=== PATIENT | male | born 1965 | race Caucasian/White ===

== ENCOUNTER 2019-07-08 07:09 | Emergency (ER) | payer MEDICARE ==
[~2019-07-08] VITALS: Ht 172.7 cm; Wt 79.4 kg
--- OUTSIDE RECORDS SUMMARY | ~2019-07-08 | XMS | Encounter Summary ---
Demographics + + + | Address | [address] | | | [place] [address] | + + + | Home Phone | | + + + | Preferred Language | Unknown | + + + | Marital Status | Single | + + + | Latter-Day Affiliation | NON | + + + | Race | White | + + + | Ethnic Group | Not or | + + + Author + + + | Author | [facility] | + + + | Organization | [facility] | + + + | Address | Unknown | + + + | Phone | Unavailable | + + + Care Team Providers + +------+ + | Care Form Designer Name | Role | Phone | + +------+ + PCP | Unavailable | + +------+ + Encounter Details +--------+ + + + + | Date | Type | Department | Care Team | Description | +--------+ + + + + | 05/17/ | Results | [facility] | E[facility] | | | 2013 | Only | Department | DO Spencer [address] | | | | | | [place] | | | | | | [address] | | | | | | [phone] | | | | | | | | +--------+ + + + + Social History + +-------+ +--------+------+ | Tobacco Use | Types | Packs/Day | Years | Date | | | | | Used | | + +-------+ +--------+------+ | Never Assessed | | | | | + +-------+ +--------+------+ + + + | Sex Assigned at | Date Recorded | | | | + + + | Not on file | | + + + + + + + | Job Start Date | Occupation | Industry | + + + + | Not on file | Not on file | Not on file | + + + + + + + + | Travel History | Travel Start | Travel End | + + + + + + | No recent travel history available. | + + documented as of this encounter Plan of Treatment Not on filedocumented as of this encounter Procedures + +--------+ + + + | Procedure Name | Priori | Date/Time | Associated Diagnosis | Comments | | | ty | | | | + +--------+ + + + | THEOPHYLLINE, PLASMA | Routin | 05/17/2014 | | Results for this | | | e | 10:35 AM | | procedure are in the | | | | PDT | | results section. | + +--------+ + + + documented in this encounter Results THEOPHYLLINE, PLASMA (05/17/2014 10:35 AM PDT) + + + + + + | Component | Value | Ref Range | Performed | Pathologist | | | | | At | Signature | + + + + + + | THEOPHYLLIN | < 0.1 (L) | 10.0 - 20.0 | [facility] | | | E | | [facility] | A [facility] | | | CONC[facility]TRAT[facility] | | | CENTER | | | ON | | | | | + + + + + + | LAST DOSE | NO | | [facility] | | | KNOWN | | | A MEDICAL | | | | | | CENTER | | + + + + + + | LAST DOSE | [facility] | | [facility] | | | DATE | | | A MEDICAL | | | | | | CENTER | | + + + + + + | LAST DOSE | [facility] | | [facility] | | | TIME | | | A MEDICAL | | | | | | CENTER | | + + + + + + + + | Specimen | + + | | + + + + + + + | Performing | Address | City/State/Zipcode | Phone Number | | Organization | | | | + + + + + | [facility] | | | | | LABORATORY | | | | + + + + + | [facility] | And | [place] [address] | [phone] | | [facility] | [facility] | | | + + + + + documented in this encounter Visit Diagnoses Not on filedocumented in this encounter"
--- OUTSIDE RECORDS SUMMARY | ~2019-07-08 | XMS | Encounter Summary ---
Demographics + + + | Address | [address] | | | [place] [address] | + + + | Home Phone | | + + + | Preferred Language | Unknown | + + + | Marital Status | | + + + | Muslim Affiliation | 1027 | + + + | Race | Unknown | + + + | Ethnic Group | Unknown | + + + Author + + + | Author | [facility] | | | and [place] | + + + | Organization | [facility] | | | and [place] | + + + | Address | Unknown | + + + | Phone | Unavailable | + + + Support + + +---------+ + | Name | Relationship | Address | Phone | + + +---------+ + | Thania Santiago | ECON | Unknown | | + + +---------+ + Care Team Providers + +------+ + | Care Department Head Name | Role | Phone | + +------+ + | Radha Rowland MD | PCP | | + +------+ + Reason for Visit + + + | Reason | Comments | + + + | Medication Refill | albuterol 2.5 mg/3 mL nebulizer solution | + + + Encounter Details +--------+--------+ + + + | Date | Type | Department | Care Team | Description | +--------+--------+ + + + | 05/04/ | Refill | [facility] | Jacob Disla, | Medication Refill | | 2019 | | [facility] | CREDIT CLERK [address] | (albuterol 2.5 mg/3 | | | | CARE [address] | [place], [place] | mL nebulizer | | | | [place], [place] | [address] | solution) | | | | [address] | | | | | | [phone] | | | +--------+--------+ + + + Social History + +-------+ +--------+------+ | Tobacco Use | Types | Packs/Day | Years | Date | | | | | Used | | + +-------+ +--------+------+ | Never Smoker | | | | | + +-------+ +--------+------+ + +------+---+---+ | Smokeless Tobacco: | Chew | | | | Current User | | | | + +------+---+---+ + + | Comments: 1 can chew weekly | + + + + +---------+ + | Alcohol Use | Drinks/We | oz/Week | Comments | | | ek | | | + + +---------+ + | No | | | | + + +---------+ + + + + | Sex Assigned at [...] Not on filedocumented as of this encounter Visit Diagnoses Not on filedocumented in this encounter"
--- OUTSIDE RECORDS SUMMARY | ~2019-07-08 | XMS | Clinical Summary ---
Demographics + + + | Address | [address] | | | [place] [address] | + + + | Home Phone | | + + + | Preferred Language | Unknown | + + + | Marital Status | | + + + | Presybeterian Affiliation | 1027 | + + + | Race | Unknown | + + + | Ethnic Group | Unknown | + + + Author + + + | Author | [facility] [facility] (Historical as of | | | 04-25-19) | + + + | Organization | [facility] [employer] (Historical as of | | | 04-25-19) | + + + | Address | Unknown | + + + | Phone | Unavailable | + + + Support + + +---------+ + | Name | Relationship | Address | Phone | + + +---------+ + | Thania Santiago | ECON | Unknown | | + + +---------+ + Care Team Providers + +------+ + | Care Telemetry Technician Name | Role | Phone | + +------+ + | Radha Rowland MD | PP | | + +------+ + Allergies + + + + + + | Active Allergy | Reactions | Severity | Noted | Comments | | | | | Date | | + + + + + + | Ibuprofen | Hives | High | 10/20/20 | | | | | | 11 | | + + + + + + Current Medications + + +---------+---------+------+------+-------+ | Prescription | Sig. | Disp. | Refills | Star | End | Statu | | | | | | t | Date | s | | | | | | Date | | | + + +---------+---------+------+------+-------+ | montelukast | Take 1 tablet by | 30 | 11 | 12/08 | 12/08 | Activ | | (SINGULAIR) 10 MG | mouth nightly. | tablet | | 6/20 | 5/20 | e | | tabletIndications: | | | | 19 | 20 | | | Severe persistent | | | | | | | | asthma with acute | | | | | | | | exacerbation | | | | | | | + + +---------+---------+------+------+-------+ | fluticasone | Inhale 1 puff into | 1 | 12 | 12/08 | 12/08 | Activ | | (FLOVENT HFA) 220 | the lungs 2 (two) | Inhaler | | 6/20 | 5/20 | e | | MCG/ACT | times daily. Rinse | | | 19 | 20 | | | inhalerIndications: | mouth after use | | | | | | | Severe persistent | | | | | | | | asthma with acute | | | | | | | | exacerbation | | | | | | | + + +---------+---------+------+------+-------+ | albuterol | USE 1 VIAL IN | 75 mL | 1 | 08/1 | | Activ | | (PROVENTIL) (2.5 | NEBULIZER 4 TIMES | | | 3/20 | | e | | MG/3ML) 0.083% | DAILY PRN | | | 19 | | | | nebulizer | | | | | | | | solutionIndications: | | | | | | | | Moderate persistent | | | | | | | | asthma with acute | | | | | | | | exacerbation | | | | | | | + + +---------+---------+------+------+-------+ | albuterol | Inhale 2 puffs into | 1 | 5 | 08/1 | 08/1 | Activ | | (PROVENTIL HFA) 108 | the lungs every 4 | Inhaler | | 3/20 | 2/20 | e | | (90 Base) MCG/ACT | (four) hours as | | | 19 | 20 | | | inhalerIndications: | needed for Wheezing. | | | | | | | Severe persistent | | | | | | | | asthma with acute | | | | | | | | exacerbation | | | | | | | + + +---------+---------+------+------+-------+ | Oxycodone HCl 10 | Take 1 tablet by | 180 | 0 | 02/07 | | Disco | | MG TABSIndications: | mouth every 4 (four) | each | | 6/20 | | ntinu | | Headache(784.0) | hours as needed. Up | | | 14 | | ed | | | to 6x/day | | | | | | + + +---------+---------+------+------+-------+ Active Problems + + + | Problem | Noted Date | + + + | Acute respiratory failure with hypoxia (HCC) | 11/12/2017 | + + + | Respiratory distress | 01/16/2017 | + + + | Hypoxia | 01/16/2017 | + + + | Severe persistent asthma with acute exacerbation | 01/16/2017 | + + + | Dehydration | 01/16/2017 | + + + | Non compliance w medication regimen | 01/16/2017 | + + + | History of methamphetamine abuse | 08/24/2015 | + + + | Hypomagnesemia | 05/09/2015 | + + + | Asthma with acute exacerbation | 05/05/2015 | + + + | Anxiety | 05/05/2015 | + + + | Multiple sclerosis (HCC) | 02/15/2015 | + + + + + | Overview: Overview: | | per patient | + + + + + | Pain management | 04/02/2014 | + + + + + | Last Assessment & Plan: He has been taken off the pain | | management contract due to having been found to have meth in his | | urine test. Therefore, oxycodone Rx was not given. A short term | | Alprazolam Rx was given for his anxiety. | + + + + + | Syncope and collapse | 10/02/2012 | + + + + + | Last Assessment & Plan: Reviewed the records of the hospital | | evaluation, really can't find a good plausible acute cause. I | | don't think it needs further investigation at this point. | + + + + + | Migraine headache | 10/02/2012 | + + + + + | Last Assessment & Plan: He will be seeing Dr. Patiño regarding | | his headache. For a chronic pain management stand point, I would | | rather have him on percocet 10-325. | + + + + + | Leukocytosis, unspecified | 10/02/2012 | + + + | Metabolic acidosis | 10/02/2012 | + + + | Sinusitis, acute ethmoidal | 10/02/2012 | + + + | PTSD (post-traumatic stress disorder) | 09/19/2012 | + + + + + | Last Assessment & Plan: He is having bad dream at night since | | he had the Klonopin stopped. He used Minipress once before, and | | that was stopped after 2 weeks with some side effects, but he is | | willing to give it another try. | + + + + + | Mood disorder | 09/19/2012 | + + + | Major depressive disorder | 08/21/2012 | + + + | Asthma, with status asthmaticus | 08/08/2012 | + + + + + | Last Assessment & Plan: He has the breathing under good | | control. | + + + + + | Headache | 12/04/2011 | + + + + + | Last Assessment & Plan: His headache is worse when he has | | stress. | + + + + + | Tachycardia | 11/23/2011 | + + + | Asthma | 07/13/2011 | + + + + + | Last Assessment & Plan: He is stable with the asthma. The | | current dose of theophylline is tolerated, and not increasing his | | anxiety. He is due to have labs to check the cruz level. | + + Resolved Problems + + + + | Problem | Noted | Resolved | | | Date | Date | + + + + | Pain management contract broken due to meth use | 11/06/19 | | | | 13 | 4 | + + + + + + | Last Assessment & Plan: Under current regimen, patient's | | condition is stable with medication and the treatment objectives | | established regarding pain management are met. Continuation of | | treatment plan with regular follow up is needed. Urine test is | | ordered today. He is planning to move to [facility] to be | | near his daughter. I do not personally know any pheresis specialist or pain | | medical management trainer in that area, but would provide the | | medical records and summary to his new provider if and when he | | finds one. Otherwise, I will continue to take care of him here. | + + + + + + | ARF (acute renal failure) | 10/02/19 | | | | 13 | 3 | + + + + | Rash and nonspecific skin eruption | 02/12/20 | | | | 12 | 2 | + + + + + + | Last Assessment & Plan: A: Much better, resolved, so this | | could be from scabies. | + + + + + + | Under or uninsured | 12/03/19 | | | | 12 | 2 | + + + + | Non compliance w medication regimen | 12/03/19 | | | | 12 | 2 | + + + + + + | Overview: Due to inability to afford Advair | + + + + + + | Cluster headache | 12/03/19 | | | | 12 | 2 | + + + + | Palpitation | 11/23/19 | | | | 12 | 2 | + + + + | Anxiety | 11/23/19 | | | | 12 | 8 | + + + + + + | Last Assessment & Plan: He is scheduled to see mental health | | provider in 3 days. I will give him 3 days of Alprazolam until | | that visit. | + + + + + + | Abnormal drug screen | 08/23/20 | | | | 11 | 2 | + + + + + + | Overview: 08/06/2011 | + + + + + + | Methamphetamine use | 08/23/20 | | | | 11 | 2 | + + + + + + | Overview: Per patient a month and a half ago- but drug screen | | positive | + + + + + + | Coccydynia | 07/13/20 | | | | 11 | 2 | + + + + + + | Overview: I believe this has been used as an excuse to get | | narcotics because even radiology documented old fracture most | | likely when x-ray was done in the ER 06/18/2011 when patient | | states he first fell. See drug screen and note 08/22/2011. No | | more narcotics for this patient. Repeatedly fully denied any use | | of meth or other illicit drugs prior to drug screen and again | | prior to discussion on his drug screen results, after being | | confronted with drug screen results, and only admits to meth use | | previously(a month and a half ago per patient). | + + + + + + | Abnormal brain MRI | 07/13/20 | | | | 11 | 2 | + + + + + + | Last Assessment & Plan: I would still encourage him to see | | the specialist. | + + Encounters +--------+--------+ + + + | Date | Type | Specialty | Care Team | Description | +--------+--------+ + + + | 04/21/ | Refill | | Cale Brown, | Severe persistent | | 2019 | | | OUTSIDE SALES PROFESSIONAL | asthma with acute | | | | | | exacerbation; | | | | | | Moderate persistent | | | | | | asthma with acute | | | | | | exacerbation | +--------+--------+ + + + from Last 3 Months Immunizations + + + + | Name | Dates Previously Given | Next Due | + + + + | INFLUENZA PF, | 11/13/2017 (Deferred: ) | | | QUADRIVALENT | | | | (PED/ADOL/ADULT) | | | + + + + | INFLUENZA TRIV | 07/24/2012 | | | W/PRES | | | + + + + | Influenza Split | 06/10/2013 | | + + + + | Influenza, PF | 06/10/2013 | | | Trivalent | | | + + + + | Influenza, Trivalent | 07/24/2012 | | | W/Preservative | | | + + + + | Tdap | 08/11/2015 | | + + + + Family History + + +-------+ + | Medical History | Relation | Name | Comments | + + +-------+ + | Asthma | Father | | | + + +-------+ + | Depression | Father | | | + + +-------+ + | Early | Father | | 30 years old | + + +-------+ + | Sudden | Father | | Electricution | + + +-------+ + | Alcohol abuse | Mother | Yamini | | + + +-------+ + | Cancer | Sister | | chrones disease | + + +-------+ + | Clifton syndrome | Sister | | | + + +-------+ + | Depression | Sister | | suicide | + + +-------+ + + +-------+ + + | Relation | Name | Status | Comments | + +-------+ + + | Brother | | Alive | | + +-------+ + + | Father | | | | + +-------+ + + | Mother | Yamini | Alive | | + +-------+ + + | Sister | | | suicide | | | | (Age | | | | | 53) | | + +-------+ + + Social History + +-------+ +--------+------+ | Tobacco Use | Types | Packs/Day | Years | Date | | | | | Used | | + +-------+ +--------+------+ | Never Smoker | | | | | + +-------+ +--------+------+ + +------+---+---+ | Smokeless Tobacco: | Chew | | | | Current User | | | | + +------+---+---+ + + | Tobacco Cessation: Ready to Quit: No; Counseling Given: Yes | | Comments: 1 can chew weekly | + + + + +---------+ + | Alcohol Use | Drinks/We | oz/Week | Comments | | | ek | | | + + +---------+ + | No | 0 | | | | | Glasses | | | | | of wine | | | | | 0 Cans of | | | | | beer 0 | | | | | Shots of | | | | | liquor 0 | | | | | Standard | | | | | drinks | | | | | or | | | | | equivalen | | | | | t | | | + + +---------+ + + + + | Sex Assigned at | Date Recorded | | | | + + + | Not on file | | + + + Last Filed Vital Signs + + + + | Vital Sign | Reading | Time Taken | + + + + | Blood Pressure | 128/76 | 02/27/2019 4:07 PM PDT | + + + + | Pulse | 104 | 02/27/2019 4:07 PM PDT | + + + + | Temperature | 36.3 C (97.3 F) | 02/27/2019 4:07 PM PDT | + + + + | Respiratory Rate | 16 | 06/30/2018 3:46 AM PDT | + + + + | Oxygen Saturation | 95% | 02/27/2019 4:07 PM PDT | + + + + | Inhaled Oxygen | - | - | | Concentration | | | + + + + | Weight | 83.5 kg (184 lb) | 02/27/2019 4:07 PM PDT | + + + + | Height | 172.7 cm (5' 7.99") | 02/27/2019 4:07 PM PDT | + + + + | Body Mass Index | 27.98 | 02/27/2019 4:07 PM PDT | + + + + Plan of Treatment + + + + + | Health Maintenance | Due Date | Last Done | Comments | + + + + + | Vaccine: | | | | | Pneumococcal 19-64 | 5 | | | | (PPSV23 only) Medium | | | | | Risk (1 of 1 - | | | | | PPSV23) | | | | + + + + + | Colon Cancer | | | | | Screening | 6 | | | | (Colonoscopy) | | | | + + + + + | Vaccine: Zoster (1 | | | | | of 2) | 6 | | | + + + + + | Vaccine: Influenza | | 06/10/2013, 07/24/2012 | | | (#1) | 9 | | | + + + + + | Vaccine: | | 08/11/2015 | | | Dtap/Tdap/Td (2 - | 5 | | | | Td) | | | | + + + + + Implants + +------+------+ +--------+--------+--------+ | Implanted | Type | Area | Manufacture | Device | Expira | Model | | | | | r | | tion | / | | | | | | Identi | Date | Serial | | | | | | fier | | / Lot | + +------+------+ +--------+--------+--------+ | Mesh Hernia Prolene Large - | | | ETHICON | | | [id number] | | [id number]: Qty: 1 on | | | | | | / | | 12/21/2014 by Chris Sams | | | | | | /[id number] | | MD Fredi | | | | | | -06 | + +------+------+ +--------+--------+--------+ Results Not on filefrom Last 3 Months Insurance + +--------+ +------+-------+ + | Payer | Benefi | Subscriber | Type | Phone | Address | | | t Plan | ID | | | | | | / | | | | | | | Group | | | | | + +--------+ +------+-------+ + | MEDICARE | MEDICA | [id number] | | | [address] | | | RE | | | | [place], [place] [address] | | | [place] | | | | | | | AD | | | | | + +--------+ +------+-------+ + | MEDICARE | MEDICA | [id number] | | | [address] | | | RE | | | | [place], [place] [address] | | | [place] | | | | | | | AD | | | | | + +--------+ +------+-------+ + + +--------+ +--------+ + + | Guarantor Name | Accoun | Relation to | Date | Phone | Billing Address | | | t Type | Patient | of | | | | | | | | | | + +--------+ +--------+ + + | JESUS REGALADO | Person | Self [birth year] | Home: | [address] | | [place] | al/Fam | | 1964 | +- | [place] | | | [place] | | | [phone] | [phone] | + +--------+ +--------+ + + | JESUS REGALADO | Person | Self [birth year] | Home: | [address] | | | al/Fam | | 1964 | +- | [place] | | | [place] | | | [phone] | [phone] | + +--------+ +--------+ + +
--- OUTSIDE RECORDS SUMMARY | ~2019-07-08 | XMS | Encounter Summary ---
Demographics + + + | Address | [address] | | | [place] [address] | + + + | Home Phone | | + + + | Preferred Language | Unknown | + + + | Marital Status | | + + + | Moravian Affiliation | 1027 | + + + | Race | Unknown | + + + | Ethnic Group | Unknown | + + + Author + + + | Author | [facility] | | | and [place] | + + + | Organization | [facility] | | | [...] Team Providers + +------+ + | Care Dairy Lab Technician Name | Role | Phone | + +------+ + | Radha Rowland MD | PCP | | + +------+ + Reason for Visit + + + | Reason | Comments | + + + | Medication Refill | | + + + Encounter Details +--------+--------+ + + + | Date | Type | Department | Care Team | Description | +--------+--------+ + + + | 05/12/ | Refill | [facility] | Kashif, | Medication Refill | | 2018 | | [facility] | MD Radha [address] | | | | | [facility] [address] | [address] | | | | | [place], [place] | [place] [address] | | | | | [address] | [phone] | | | | | [phone] | | | +--------+--------+ + + + [...] filedocumented as of this encounter Visit Diagnoses + + | Diagnosis | + + | Acute respiratory failure with hypoxia (HCC) - Primary Acute respiratory failure | + + | Asthma, unspecified asthma severity, unspecified whether complicated, unspecified | | whether persistent | + + | Asthma with status asthmaticus, unspecified asthma severity, unspecified whether | | persistent | + + | Respiratory distress Other dyspnea and respiratory abnormality | + + documented in this encounter"
--- OUTSIDE RECORDS SUMMARY | ~2019-07-08 | XMS | Clinical Summary ---
Demographics + + + | Address | [address] | | | [place] [address] | + + + | Home Phone | | + + + | Preferred Language | Unknown | + + + | Marital Status | | + + + | [employer] Affiliation | 1027 | + + + | Race | Unknown | + + + | Ethnic Group | Unknown | + + + Author + + + | Author | [facility] | | | and Fengana | + + + | Organization | [facility] | | [...] Team Providers + +------+ + | Care Quality Worker Name | Role | Phone | + +------+ + | Radha Rowland MD | PCP | | + +------+ + Allergies + + + + + + | Active Allergy | Reactions | Severity | Noted | Comments | | | | | Date | | + + + + + + | Ibuprofen | Hives | High | 10/20/20 | | | | | | 11 | | + + + + + + Medications + + + +---------+------+------+-------+ | Medication | Sig | Dispensed | Refills | Star | End | Statu | | | | | | t | Date | s | | | | | | Date | | | + + + +---------+------+------+-------+ | albuterol 2.5 mg/3 | USE 1 VIAL IN | 75 mL | 3 | 09/2 | | Activ | | mL nebulizer | NEBULIZER 4 TIMES | | | 2/ | | e | | solutionIndications: | DAILY NEEDED | | | 19 | | | | Acute respiratory | | | | | | | | failure with hypoxia | | | | | | | | ([facility]), Asthma, | | | | | | | | unspecified asthma | | | | | | | | severity, | | | | | | | | unspecified whether | | | | | | | | complicated, | | | | | | | | unspecified whether | | | | | | | | persistent, Asthma | | | | | | | | with status | | | | | | | | asthmaticus, | | | | | | | | unspecified asthma | | | | | | | | severity, | | | | | | | | unspecified whether | | | | | | | | persistent, | | | | | | | | Respiratory distress | | | | | | | + + + +---------+------+------+-------+ | clonazePAM | Take 1 tablet by | 10 | 0 | 09/2 | | Activ | | (KLONOPIN) 0.5 mg | mouth Twice daily | tablet | | 2/20 | | e | | tablet | as needed for | | | 19 | | | | | Anxiety. | | | | | | + + + +---------+------+------+-------+ | albuterol (PROAIR | Inhale 2 puffs into | 18 g | 3 | 09/2 | 10/0 | Expir | | HFA) 90 mcg/puff | the lungs every 6 | | | 2/20 | 2/20 | ed | | inhaler | hours as needed for | | | 19 | 19 | | | | Wheezing for up to | | | | | | | | 10 days. | | | | | | + + + +---------+------+------+-------+ Active Problems + + + | Problem | Noted Date | + + + | Acute respiratory failure with hypoxia | 11/12/2017 | + + + | Hypoxia | 01/16/2017 | + + + | Dehydration | 01/16/2017 | + + + | Non compliance w medication regimen | 01/16/2017 | + + + | Respiratory distress | 01/16/2017 | + + + | Severe persistent asthma with acute exacerbation | 01/16/2017 | + + + | History of methamphetamine abuse | 08/24/2015 | + + + | Hypomagnesemia | 05/09/2015 | + + + | Anxiety | 05/05/2015 | + + + | Asthma with acute exacerbation | 05/05/2015 | + + + | Multiple sclerosis | 02/15/2015 | + + + + + | Overview: per patient | + + + + + | Pain management | 04/02/2014 | + + + + + | Overview: Last Assessment & Plan: He has been taken off the | | pain management contract due to having been found to have meth in | | his urine test. Therefore, oxycodone Rx was not given. A short | | term Alprazolam Rx was given for his anxiety. | + + + + + | Leukocytosis | 10/02/2012 | + + + | Metabolic acidosis | 10/02/2012 | + + + | Migraine headache | 10/02/2012 | + + + + + | Overview: Last Assessment & Plan: He will be seeing Dr. Patiño | | regarding his headache. For a chronic pain management stand | | point, I would rather have him on percocet 10325. | + + + + + | Sinusitis, acute ethmoidal | 10/02/2012 | + + + | Syncope and collapse | 10/02/2012 | + + + + + | Overview: Last Assessment & Plan: Reviewed the records of the | | hospital evaluation, really can't find a good plausible acute | | cause. I don't think it needs further investigation at this | | point. | + + + + + | Episodic mood disorder | 09/19/2012 | + + + | PTSD (post-traumatic stress disorder) | 09/19/2012 | + + + + + | Overview: Last Assessment & Plan: He is having bad dream at | | night since he had the Klonopin stopped. He used Minipress once | | before, and that was stopped after 2 weeks with some side | | effects, but he is willing to give it another try. | + + + + + | Major depressive disorder | 08/21/2012 | + + + | Asthma with status asthmaticus | 08/08/2012 | + + + + + | Overview: Last Assessment & Plan: | | He has the breathing under good control. | + + + + + | Headache | 12/04/2011 | + + + + + | Overview: Last Assessment & Plan: | | His headache is worse when he has stress. | + + + + + | Tachycardia | 11/23/2011 | + + + | Asthma | 07/13/2011 | + + + + + | Overview: Last Assessment & Plan: He is stable with the | | asthma. The current dose of theophylline is tolerated, and not | | increasing his anxiety. He is due to have labs to check the cruz | | level. | + + Encounters +--------+ + + + + | Date | Type | Specialty | Care Team | Description | +--------+ + + + + | 05/29/ | Hospital | Internal Medicine | Jesus Cotter | Pneumonia of both | | 2019 - | Encounter | | MD Jose De Jesus Thurston, | lower lobes due to | | | | | DO Bandar Guzmán, | infectious organism | | 05/31/ | | | MD Norman | ([facility]) (Primary Dx); | | 2018 | | | | Exacerbation of | | | | | | asthma, unspecified | | | | | | asthma severity, | | | | | | unspecified whether | | | | | | persistent; | | | | | | Respiratory | | | | | | distress; Acute | | | | | | respiratory failure | | | | | | with hypoxia ([facility]); | | | | | | Anxiety; Asthma, | | | | | | unspecified asthma | | | | | | severity, | | | | | | unspecified whether | | | | | | complicated, | | | | | | unspecified whether | | | | | | persistent; Asthma | | | | | | with status | | | | | | asthmaticus, | | | | | | unspecified asthma | | | | | | severity, | | | | | | unspecified whether | | | | | | persistent | +--------+ + + + + | 05/12/ | Refill | Family Medicine | Kashif, | Medication Refill | | 2018 | | | MD Radha | | +--------+ + + + + | 05/04/ | Refill | Family Medicine | Jacob Disla, | Medication Refill | | 2018 | | | [employer] | (albuterol 2.5 mg/3 | | | | | | mL nebulizer | | | | | | solution) | +--------+ + + + + | 04/07/ | Orders Only | | Yvon, | | | 2018 | | | MD Jodie | | +--------+ + + + + from Last 3 Months Immunizations + + + + | Name | Dates Previously Given | Next Due | + + + + | INFLUENZA PF 19 Y OR | 06/10/2013 | | | >,QUADRIVALENT | | | | RECOMBINANT | | | + + + + | INFLUENZA TRIV | 07/24/2012 | | | W/PRES(PED/ADOL/ADUL | | | | T),MULTIDOSE | | | + + + + | TDAP, (ADOL/ADULT) | 08/11/2015 | | + + + [...] | suicide | + + +-------+ + | Cancer | Sister | | chrones disease | + + +-------+ + | Indianola syndrome | Sister | | | + + +-------+ + + +-------+ [...] 53) | | + +-------+ + + | Sister | | | | + +-------+ + + | Sister | | | | + +-------+ + + | Sister | | | | + +-------+ + + Social [...] recent travel history available. | + + Last Filed Vital Signs + + + + | Vital Sign | Reading | Time Taken | + + + + | Blood Pressure | 139/76 | 05/31/20191253 PDT | + + + + | Pulse | 110 | 05/31/20191253 PDT | + + + + | Temperature | 36.3 C (97.4 F) | 05/31/20191253 PDT | + + + + | Respiratory Rate | 22 | 05/31/20191253 PDT | + + + + | Oxygen Saturation | 93% | 05/31/20191253 PDT | + + + + | Inhaled Oxygen | - | - | | Concentration | | | + + + + | Weight | 78.9 kg (174 lb) | 05/29/20191726 PDT | + + + + | Height | 172.7 cm (5' 8") | 05/29/20191726 PDT | + + + + | Body Mass Index | 26.46 | 05/29/20191726 PDT | + + + + Plan [...] | + + + + + | Colorectal Cancer | | | | | Screening | 6 | | | | (Colonoscopy) | | | | + + + + + | Vaccine: Zoster (1 | | | | | of 2) | 6 | | | + + + + + | Adult Annual | | | | | Wellness Visit | 9 | | | + + + + + | Vaccine: Influenza | | 06/10/2013, 06/10/2013, | | | (#1) | 9 | 07/24/2012 | | + + + + + | Vaccine: | | 08/11/2015 | | | Dtap/Tdap/Td (2 - | 5 | | | | Td) | | | | + + + + + Implants + +------+------+ +--------+--------+--------+ | Implanted | Type | Area | Manufacture | Device | Shelf | Model | | | | | r | | Expira | / | | | | | | Identi | tion | Serial | | | | | | fier | Date | / Lot | + +------+------+ +--------+--------+--------+ | Mesh Hernia Prolene Large - | | | JJHCS | | | [id number] | | [id number]: Qty: 1 on | | | ETHICON | | | / | | 12/21/2014 by Chris Sams | | | SUTURE - | | | /[id number] | | MD Fredi | | | ETHAlessandro | | | -06 | + +------+------+ +--------+--------+--------+ Procedures + +--------+ + + + | Procedure Name | Priori | Date/Time | Associated Diagnosis | Comments | | | ty | | | | + +--------+ + + + | RESPIRATORY VIRUS | STAT | 05/30/2019 | | Results for this | | ANTIGENS PROFILE | | 9:58 PDT | | procedure are in the | | | | | | results section. | + +--------+ + + + | PHOSPHORUS | Routin | 05/30/2019 | | Results for this | | | e | 5:54 PDT | | procedure are in the | | | | | | results section. | + +--------+ + + + | MAGNESIUM | Routin | 05/30/2019 | | Results for this | | | e | 5:54 PDT | | procedure are in the | | | | | | results section. | + +--------+ + + + | CBC NO DIFFERENTIAL | Routin | 05/30/2019 | | Results for this | | | e | 5:54 PDT | | procedure are in the | | | | | | results section. | + +--------+ + + + | BASIC METABOLIC | Routin | 05/30/2019 | | Results for this | | PANEL | e | 5:54 PDT | | procedure are in the | | | | | | results section. | + +--------+ + + + | CULTURE, BLOOD | STAT | 05/29/2019 | | Results for this | | | | 15:12 PDT | | procedure are in the | | | | | | results section. | + +--------+ + + + | CULTURE, BLOOD | STAT | 05/29/2019 | | Results for this | | | | 14:41 PDT | | procedure are in the | | | | | | results section. | + +--------+ + + + | XR CHEST PA AND | MIKY | 05/29/2019 | | Results for this | | LATERAL | | 13:34 PDT | | procedure are in the | | | | | | results section. | + +--------+ + + + | PROCALCITONIN, SERUM | Add-On | 05/29/2019 | | Results for this | | | | 12:45 PDT | | procedure are in the | | | | | | results section. | + +--------+ + + + | COMPREHENSIVE | Routin | 05/29/2019 | | Results for this | | METABOLIC PANEL | e | 12:45 PDT | | procedure are in the | | | | | | results section. | + +--------+ + + + | TROPONIN I | Routin | 05/29/2019 | | Results for this | | | e | 12:45 PDT | | procedure are in the | | | | | | results section. | + +--------+ + + + | ECG 12 LEAD | STAT | 05/29/2019 | | Results for this | | | | 11:54 PDT | | procedure are in the | | | | | | results section. | + +--------+ + + + | CBC WITH | STAT | 05/29/2019 | | Results for this | | DIFFERENTIAL | | 11:53 PDT | | procedure are in the | | | | | | results section. | + +--------+ + + + | ED INFORMATION | Routin | 05/29/2019 | | | | EXCHANGE | e | 11:21 PDT | | | + +--------+ + + + +---+--------+ | | | | | Proced | | | ure | | | Note - | | | Max, | | | Lab In | | | | | | Hlseve | | | n - | | | | | | 2018 | | | 1122 | | | PDT | | | Format | | | ting | | | of | | | this | | | note | | | might | | | be | | | differ | | | ent | | | from | | | the | | | origin | | | al.COL | | | LECTIV | | | E?NOTI | | | FICATI | | | ON?/ | | | 20/ | | | 9 | | | 11:21? | | | PHILLI | | | PS, | | | MICHAE | | | L | | | R?MRN: | | | | | | [id number] | | | [id number] | | | riteri | | | a Met | | | | | | PDMPSe | | | curity | | | and | | | Safety | | | No | | | recent | | | | | | Securi | | | ty | | | Events | | | | | | curren | | | tly on | | | | | | fileED | | | Care | | | Guidel | | | inesTh | | | ere | | | are | | | curren | | | tly no | | | ED | | | Care | | | Guidel | | | radha | | | for | | | this | | | patien | | | t. | | | Please | | | check | | | your | | | facili | | | ty's | | | medica | | | l | | | record | | | s | | | system | | | .Care | | | Histor | | | yMedic | | | al/Victor Hugo | | | [email or web address] | | | 1/5/14 | | | 12:00 | | | AM | | | Samari | | | [facility]eland | | | Hospit | | | al | | | Asthma | | | | | | Depres | | | josselyn | | | MS Dx | | | in | | | 2013Pr | | | escrip | | | tion | | | Drug | | | Report | | | (12 | | | Mo.)Rx | | | | | | Detail | | | sFill | | | Date | | | Drug | | | Descri | | | ption | | | Qty. | | | Prescr | | | iber | | | CS MED | | | | | | 2019-0 | | | 5-07 | | | ALPRAZ | | | OLAM 1 | | | MG | | | TABLET | | | 4 | | | SHEIK | | | BUSTOS 4 | | | 0 | | | 2019-0 | | | 5-04 | | | HYDROC | | | ODONE- | | | ACETAM | | | IN | | | 10-325 | | | MG 8 | | | SHEIK | | | BUSTOS 2 | | | 40 | | | 2018-1 | | | 2-24 | | | ALPRAZ | | | OLAM 1 | | | MG | | | TABLET | | | 90 | | | CHI | | | PUI 4 | | | 0 | | | 2018-1 | | | 1-19 | | | ALPRAZ | | | OLAM 1 | | | MG | | | TABLET | | | 90 | | | CHI | | | PUI 4 | | | 0 | | | 2018-1 | | | 0-23 | | | ALPRAZ | | | OLAM 1 | | | MG | | | TABLET | | | 90 | | | CHI | | | PUI 4 | | | 0 Rx | | | Summar | | | yMetri | | | c | | | Count | | | CS | | | II-V | | | Rx 5 | | | CS-II | | | Rx 1 | | | Quanti | | | ty | | | Dispen | | | sed | | | 282 | | | Unique | | | | | | Prescr | | | ibers | | | 2 | | | Unique | | | | | | Pharma | | | cies 2 | | | | | | Benzos | | | 4 | | | Opioid | | | s 1 | | | Long | | | Acting | | | | | | Opioid | | | s 0 | | | E.D. | | | Visit | | | Count | | | (12 | | | mo.)Fa | | | cility | | | | | | Visits | | | Low | | | Acuity | | | [facility] | | | | | | [facility] | | | idge | | | Hospit | | | al 1 0 | | | | | | [facility] | | | | | | Region | | | al | | | Medica | | | l | | | Center | | | 1 0 | | | [facility] | | | r | | | [facility] | | | al | | | Hospit | | | al | | | Medica | | | l | | | Center | | | 1 0 | | | [place] | | | [facility] | | | Commun | | | ity | | | Hospit | | | al 1 0 | | | Total | | | 4 0 | | | Note: | | | Visits | | | | | | indica | | | te | | | total | | | known | | | visits | | | . | | | Medica | | | id Low | | | | | | Acuity | | | Dx | | | are | | | the | | | number | | | of | | | primar | | | y | | | diagno | | | ses on | | | the | | | Medica | | | id's | | | Low | | | Acuity | | | dx | | | list. | | | | | | Recent | | | | | | Emerge | | | ncy | | | Depart | | | ment | | | Visit | | | [facility] | | | yDate | | | Facili | | | ty | | | City | | | State | | | Type | | | Diagno | | | ses or | | | Chief | | | | | | Compla | | | int | | | Sep | | | 20, | | | 2019 | | | [facility] | | | | | | [facility] | | | al | | | [facility] | | | [place] | | | [place] | | | Emerge | | | ncy | | | May 2, | | | 2019 | | | [facility] | | | [facility] | | | idge | | | H. | | | [place] | | | [place] | | | Emerge | | | ncy | | | Chief | | | Compla | | | int: | | | SOB, | | | HEADAC | | | HE | | | Oct | | | 22, | | | 2018 | | | [facility] | | | r | | | [facility] | | | al H. | | | [facility] | | | [place] | | | [place] | | | Emerge | | | ncy | | | | | | asthma | | | | | | Unspec | | | ified | | | asthma | | | with | | | (acute | | | ) | | | exacer | | | bation | | | Oct | | | 5, | | | 2018 | | | [facility] | | | [facility] | | | Commun | | | ity H. | | | | | | [place] | | | [place] | | | Emerge | | | ncy | | | Chief | | | Compla | | | int: | | | Asthma | | | | | | concer | | | ns | | | Recent | | | | | | Inpati | | | ent | | | Visit | | | [facility] | | | yDate | | | Facili | | | ty | | | City | | | State | | | Type | | | Diagno | | | ses or | | | Chief | | | | | | Compla | | | int | | | May 2, | | | 2019 | | | [facility] | | | [facility] | | | idge | | | H. | | | [place] | | | [place] | | | Medica | | | l | | | Surgic | | | al | | | 0. | | | Unspec | | | ified | | | asthma | | | with | | | (acute | | | ) | | | exacer | | | bation | | | 1. | | | | | | Modera | | | te | | | persis | | | tent | | | asthma | | | with | | | (acute | | | ) | | | exacer | | | bation | | | 2. | | | Other | | | | | | specif | | | ied | | | anxiet | | | y | | | disord | | | ers | | | 3. | | | Multip | | | le | | | sclero | | | sis | | | 4. | | | Allerg | | | y | | | status | | | to | | | other | | | drugs, | | | | | | medica | | | ments | | | and | | | biolog | | | ical | | | substa | | | nces | | | status | | | 5. | | | | | | Patien | | | t's | | | other | | | noncom | | | plianc | | | e with | | | | | | medica | | | tion | | | regime | | | n | | | Care | | | TeamPr | | | ovider | | | | | | Specia | | | lty | | | Phone | | | Fax | | | Servic | | | e | | | Dates | | | HANKS, | | | JEAN PIERRE | | | [employer] | | | | | | [place]ORRAI | | | [place], | | | [employer] | | | Nurse | | | Practi | | | tioner | | | : | | | Psychi | | | atric/ | | | Mental | | | | | | Health | | | | | | Curren | | | t | | | [facility] | | | tive | | | Portal | | | This | | | patien | | | t has | | | regist | | | ered | | | at the | | | | | | [facility] | | | | | | Region | | | al | | | Medica | | | l | | | Center | | | | | | Emerge | | | ncy | | | Depart | | | ment | | | For | | | more | | | inform | | | ation | | | visit: | | | | | | https: | | | //secu | | | re.col | | | lectiv | | | emedic | | | al.com | | | /notif | | | [id number] | | | [id number] | | | [phone] | | | [phone] | | | [phone] | | | [phone] | | | 49 | | | PLEASE | | | NOTE: | | | 1. | | | Any | | | care | | | recomm | | | endati | | | ons | | | and | | | other | | | clinic | | | al | | | inform | | | ation | | | are | | | provid | | | ed as | | | guidel | | | radha | | | or for | | | | | | histor | | | ical | | | purpos | | | es | | | only, | | | and | | | provid | | | ers | | | should | | | | | | exerci | | | se | | | their | | | own | | | clinic | | | al | | | judgme | | | nt | | | when | | | provid | | | ing | | | care. | | | 2. | | | You | | | may | | | only | | | use | | | this | | | inform | | | ation | | | for | | | purpos | | | es of | | | treatm | | | ent, | | | paymen | | | t or | | | health | | | care | | | operat | | | ions | | | activi | | | ties, | | | and | | | subjec | | | t to | | | the | | | limita | | | tions | | | of | | | applic | | | able | | | [facility] | | | tive | | | Polici | | | es. | | | 3. | | | You | | | should | | | | | | consul | | | t | | | direct | | | ly | | | with | | | the | | | organi | | | zation | | | that | | | provid | | | ed a | | | care | | | guidel | | | ine or | | | other | | | | | | clinic | | | al | | | histor | | | y with | | | any | | | questi | | | ons | | | about | | | additi | | | onal | | | inform | | | ation | | | or | | | accura | | | cy or | | | comple | | | teness | | | of | | | inform | | | ation | | | provid | | | ed.? | | | 2019 | | | [facility] | | | tive | | | Medica | | | l | | | Techn[employer] | | | logies | | | , Inc[employer] | | | - | | | [email or web address] | | | llecti | | | vemedi | | | [email or web address] | | | m | +---+--------+ from Last 3 Months Results Respiratory pathogen panel, NAAT (05/30/2019 9:58 PDT) + + + + + + | Component | Value | Ref Range | Performed | Pathologist | | | | | At | Signature | + + + + + + | Adenovirus | Not Detected | NOTDET | [facility] | | | DNA | | | LABORATORY | | + + + + + + | Coronavirus | Not Detected | NOTDET | [facility] | | | 229E | | | LABORATORY | | + + + + + + | Coronavirus | Not Detected | NOTDET | [facility] | | | HKU1 | | | LABORATORY | | + + + + + + | Coronavirus | Not Detected | NOTDET | [facility] | | | NL63 | | | LABORATORY | | + + + + + + | Coronavirus | Not Detected | NOTDET | [facility] | | | OC43 | | | LABORATORY | | + + + + + + | Human | Not Detected | NOTDET | [facility] | | | Metapneumov | | | LABORATORY | | | irus | | | | | + + + + + + | Rhinovirus/ | Not Detected | NOTDET | [facility] | | | Enterovirus | | | LABORATORY | | + + + + + + | Influenza A | Not Detected | NOTDET | [facility] | | | | | | LABORATORY | | + + + + + + | Influenza B | Not Detected | NOTDET | [facility] | | | | | | LABORATORY | | + + + + + + | Parainfluen | Not Detected | NOTDET | [facility] | | | za 1 | | | LABORATORY | | + + + + + + | Parainfluen | Not Detected | NOTDET | [facility] | | | za 2 | | | LABORATORY | | + + + + + + | Parainfluen | Not Detected | NOTDET | [facility] | | | za 3 | | | LABORATORY | | + + + + + + | Parainfluen | Not Detected | NOTDET | [facility] | | | za 4 | | | LABORATORY | | + + + + + + | Respiratory | Not Detected | NOTDET | [facility] | | | Syncytial | | | LABORATORY | | | Virus | | | | | + + + + + + | Bordetella | Not Detected | NOTDET | [facility] | | | pertussis | | | LABORATORY | | | DNA | | | | | + + + + + + | Chlamydia | Not Detected | NOTDET | [facility] | | | pneumoniae | | | LABORATORY | | + + + + + + | Mycoplasma | Not Detected | NOTDET | [facility] | | | pneumoniae | | | LABORATORY | | + + + + + + | Interpretat | Testing performed by | | [facility] | | | ion: | Molecular | | LABORATORY | | | | MethodologyComment: | | | | | | Testing performed at | | | | | | [facility], [address] | | | | | | [place] | | | | | | [address] | | | | + + + + + + + + | Specimen | + + | Tissue | + + + + + + + | Performing | Address | City/State/Zipcode | Phone Number | | Organization | | | | + + + + + | [facility] | [address] | [place] [address] | [phone] | + + + + + CBC no Differential (05/30/2019 5:54 PDT) + + + + + + | Component | Value | Ref Range | Performed | Pathologist | | | | | At | Signature | + + + + + + | WBC | 13.58 (H) | 3.80 - 11.00 | [facility] | | | | | K/uL | LABORATORY | | + + + + + + | RBC | 5.12 | 4.20 - 5.70 | [facility] | | | | | M/uL | LABORATORY | | + + + + + + | Hemoglobin | 16.8 | 13.2 - 17.0 | [facility] | | | | | g/dL | LABORATORY | | + + + + + + | Hematocrit | 50.3 (H) | 39.0 - 50.0 % | [facility] | | | | | | LABORATORY | | + + + + + + | MCV | 98.2 | 80.0 - 100.0 fl | [facility] | | | | | | LABORATORY | | + + + + + + | MCH | 32.9 | 27.0 - 34.0 pg | [facility] | | | | | | LABORATORY | | + + + + + + | MCHC | 33.5 | 32.0 - 35.5 | [facility] | | | | | g/dL | LABORATORY | | + + + + + + | RDW-SD | 45.1 | 37 - 53 fl | [facility] | | | | | | LABORATORY | | + + + + + + | Platelet | 293 | 150 - 400 K/uL | [facility] | | | Count | | | LABORATORY | | + + + + + + | MPV | 9.1Comment: Testing | fl | [facility] | | | | performed at [facility], [address] | | LABORATORY | | | | [address] [place], | | | | | | [place] [address] | | | | + + + + + + + + | Specimen | + + | Blood | + + + + + + + | Performing | Address | City/State/Zipcode | Phone Number | | Organization | | | | + + + + + | [facility] | [address] | [place] [address] | [phone] | + + + + + Phosphorus (05/30/2019 5:54 PDT) + + + + + + | Component | Value | Ref Range | Performed | Pathologist | | | | | At | Signature | + + + + + + | Phosphorus | 4.5Comment: Testing | 2.3 - 4.8 mg/dL | [facility] | | | | performed at [facility], [address] | | LABORATORY | | | | [address], | | | | | | [place] [address] | | | | + + + + + + + + | Specimen | + + | Blood | + + + + + + + | Performing | Address | City/State/Zipcode | Phone Number | | Organization | | | | + + + + + | [facility] | [address] | [place] [address] | [phone] | + + + + + Magnesium (05/30/2019 5:54 PDT) + + + + + + | Component | Value | Ref Range | Performed | Pathologist | | | | | At | Signature | + + + + + + | Magnesium | 2.1Comment: Testing | 1.7 - 2.4 mg/dL | [facility] | | | | performed at [facility], [address] | | LABORATORY | | | | [address], | | | | | | [place] [address] | | | | + + + + + + + + | Specimen | + + | Blood | + + + + + + + | Performing | Address | City/State/Zipcode | Phone Number | | Organization | | | | + + + + + | [facility] | [address] | [place] [address] | [phone] | + + + + + Basic Metabolic Panel (05/30/2019 5:54 PDT) + + + + + + | Component | Value | Ref Range | Performed | Pathologist | | | | | At | Signature | + + + + + + | Na | 141 | 135 - 145 | [facility] | | | | | mmol/L | LABORATORY | | + + + + + + | K | 4.0 | 3.5 - 4.9 | [facility] | | | | | mmol/L | LABORATORY | | + + + + + + | Cl | 108 | 99 - 109 mmol/L | [facility] | | | | | | LABORATORY | | + + + + + + | CO2 | 24 | 23 - 32 mmol/L | [facility] | | | | | | LABORATORY | | + + + + + + | Anion Gap | 13 | 5 - 20 mmol/L | [facility] | | | | | | LABORATORY | | + + + + + + | Glucose | 110 (H) | 65 - 99 mg/dL | [facility] | | | | | | LABORATORY | | + + + + + + | BUN | 14 | 8 - 25 mg/dL | [facility] | | | | | | LABORATORY | | + + + + + + | Creatinine | 0.7 | 0.70 - 1.30 | [facility] | | | | | mg/dL | LABORATORY | | + + + + + + | BUN/Creatin | 20 | | [facility] | | | ine Ratio | | | LABORATORY | | + + + + + + | Calcium | 9.1 | 8.5 - 10.5 | [facility] | | | | | mg/dL | LABORATORY | | + + + + + + | Estimated | >60Comment: GFR <60: | >60 | [facility] | | | GFR | CHRONIC KIDNEY DISEASE, | mL/min/1.73m2 | LABORATORY | | | | IF FOUND OVER A 3 MONTH | | | | | | PERIOD.GFR <15: KIDNEY | | | | | | FAILURE.FOR | | | | | | AMERICANS, MULTIPLY THE | | | | | | CALCULATED GFR BY | | | | | | 1.210.This eGFR is | | | | | | calculated using the | | | | | | MDRD IDMS traceable | | | | | | equation.Testing | | | | | | performed at [facility], [address] | | | | | [facility], | | | | | | [place] [address] | | | | + + + + + + + + | Specimen | + + | Blood | + + + + + + + | Performing | Address | City/State/Zipcode | Phone Number | | Organization | | | | + + + + + | [facility] | [address] | [place] [address] | [phone] | + + + + + Culture, Blood (05/29/2019 15:12 PDT)Only the most recent of 2 results within the time soheila od is included. + + + + + + | Component | Value | Ref Range | Performed | Pathologist | | | | | At | Signature | + + + + + + | Special | RT WRIST | | [facility] | | | Requests | | | LABORATORY | | + + + + + + | Special | Testing performed at | | [facility] | | | Requests | [facility];[address] | | LABORATORY | | | | [place] [address] | | | | + + + + + + | RESULT | NO GROWTH 6 DAYS | | [facility] | | | | | | LABORATORY | | + + + + + + | RESULT | Testing performed at | | [facility] | | | | [facility], [address] | | LABORATORY | | | | [place], [place] | | | | | | [id number]: Testing | | | | | | performed at [facility], [address] | | | [address] [place], [place] | | | | | | [address] | | | | + + + + + + + + | Specimen | + + | Blood | + + + + + + + | Performing | Address | City/State/Zipcode | Phone Number | | Organization | | | | + + + + + | [facility] | [address] | [place] [address] | [phone] | + + + + + XR Chest PA and Lateral (05/29/2019 13:34 PDT) + + | Specimen | + + | | + + + + + | Narrative | Performed At | + + + | CHEST PA AND LATERAL CLINICAL INFORMATION: Shortness of | [facility] | | breath and anxiety. COMPARISON: XR CHEST 1 VIEW (11/12/2017); XR | | | CHEST 1 VIEW (09/26/2017); XR CHEST 2 VIEW (06/14/2017); FINDINGS: | | | The heart is normal in size. No pulmonary vascular | | | congestion. Tiny bilateral pleural effusions. No pneumothorax. | | | IMPRESSION: Tiny bilateral pleural effusions. Signed | | | by: Cali Robin, Carlos Sign Date/Time: 05/29/2019 2:09 PM | | + + + + + | Procedure Note | + + | Max, Rad Results In - 05/29/2019 1413 PDT | | CHEST PA AND LATERAL | | | | CLINICAL INFORMATION: | | Shortness of breath and anxiety. | | | | COMPARISON: | | XR CHEST 1 VIEW (11/12/2017); XR CHEST 1 VIEW (09/26/2017); XR CHEST 2 | | VIEW (06/14/2017); | | | | FINDINGS: | | The heart is normal in size. No pulmonary vascular congestion. Tiny | | bilateral pleural effusions. No pneumothorax. | | | | IMPRESSION: | | Tiny bilateral pleural effusions. | | | | | | | | Signed by: Cali Robin Chet | | Sign Date/Time: 05/29/2019 2:09 PM | + + + +---------+ + + | Performing | Address | City/State/Zipcode | Phone Number | | Organization | | | | + +---------+ + + | [facility] | | | | + +---------+ + + Procalcitonin (05/29/2019 12:45 PDT) + + + + + + | Component | Value | Ref Range | Performed | Pathologist | | | | | At | Signature | + + + + + + | PROCALCITON | <0.05Comment: | <0.5 ng/mL | [facility] | | | IN | INTERPRETIVE | | LABORATORY | | | | INFORMATION: PROCALCI | | | | | | TONIN PCT <= 0.5 | | | | | | ng/mL: Low risk | | | | | | for progression to | | | | | | severe | | | | | | systemic bacteria | | | | | | l infection (severe | | | | | | sepsis/septic | | | | | | shock). Does not | | | | | | exclude an infection, | | | | | | because | | | | | | localized infecti | | | | | | ons may be associated | | | | | | with such low | | | | | | levels. If PCT is | | | | | | measured very early | | | | | | after | | | | | | bacterial challen | | | | | | ge (usually <6 hours), | | | | | | results may still | | | | | | be low and should | | | | | | re-assess PCT 6-24 | | | | | | hours later. PCT >0.5 | | | | | | and <= 2 | | | | | | ng/mL: Moderate | | | | | | risk for progression to | | | | | | severe | | | | | | systemic infectio | | | | | | n (severe sepsis/septic | | | | | | shock). Other | | | | | | conditions are known to | | | | | | elevate PCT, patient | | | | | | should be | | | | | | closely monitored both | | | | | | clinically and | | | | | | by re-assessing | | | | | | PCT within 6-24 hours. | | | | | | PCT > 2 | | | | | | ng/mL: High | | | | | | likelihood for | | | | | | progression to severe | | | | | | systemic bacteria | | | | | | l infection (severe | | | | | | sepsis/septic shock). | | | | | | PCT >= 10 | | | | | | ng/mL: High | | | | | | likelihood of severe | | | | | | sepsis or septic | | | | | | shock.Testing performed | | | | | | at [facility];[address] | | | | | | [place] [address] | | | | + + + + + + + + | Specimen | + + | Blood | + + + + + + + | Performing | Address | City/State/Zipcode | Phone Number | | Organization | | | | + + + + + | [facility] | [address] | [place] [address] | [phone] | + + + + + Troponin I (05/29/2019 12:45 PDT) + + + + + + | Component | Value | Ref Range | Performed | Pathologist | | | | | At | Signature | + + + + + + | Troponin I | <0.006Comment: 0.04 | 0.00 - 0.04 | [facility] | | | | ng/mL or | ng/mL | LABORATORY | | | | less Nega | | | | | | tive, repeat testing in | | | | | | four to six hour | | | | | | ifclinically | | | | | | indicted0.05 to 0.77 | | | | | | ng/mL Lashell | | | | | | picious for myocardial | | | | | | injury. Serial | | | | | | measurementsmay be | | | | | | necessary to confirm or | | | | | | exclude the diagnosis of | | | | | | acute coronarysyndrome. | | | | | | Repeat testing in four | | | | | | to six hours if | | | | | | indicated.0.78 or | | | | | | greater | | | | | | ng/mL Consistent | | | | | | with myocardial injury. | | | | | | Clinical andlaboratory | | | | | | correlation recommended. | | | | | | Testing performed at | | | | | | [facility];[address];[place] [address] | | | | + + + + + + + + | Specimen | + + | | + + + + + + + | Performing | Address | City/State/Zipcode | Phone Number | | Organization | | | | + + + + + | [facility] | [address] | [place] [address] | [phone] | + + + + + Comprehensive Metabolic Panel (05/29/2019 12:45 PDT) + + + + + + | Component | Value | Ref Range | Performed | Pathologist | | | | | At | Signature | + + + + + + | Na | 143 | 135 - 145 | [facility] | | | | | mmol/L | LABORATORY | | + + + + + + | K | 3.7 | 3.5 - 4.9 | [facility] | | | | | mmol/L | LABORATORY | | + + + + + + | Cl | 108 | 99 - 109 mmol/L | [facility] | | | | | | LABORATORY | | + + + + + + | CO2 | 25 | 23 - 32 mmol/L | [facility] | | | | | | LABORATORY | | + + + + + + | Anion Gap | 14 | 5 - 20 mmol/L | [facility] | | | | | | LABORATORY | | + + + + + + | Glucose | 112 (H) | 65 - 99 mg/dL | [facility] | | | | | | LABORATORY | | + + + + + + | BUN | 13 | 8 - 25 mg/dL | [facility] | | | | | | LABORATORY | | + + + + + + | Creatinine | 0.83 | 0.70 - 1.30 | [facility] | | | | | mg/dL | LABORATORY | | + + + + + + | BUN/Creatin | 16 | | [facility] | | | ine Ratio | | | LABORATORY | | + + + + + + | Calcium | 10.1 | 8.5 - 10.5 | [facility] | | | | | mg/dL | LABORATORY | | + + + + + + | Protein, | 7.3 | 6.3 - 8.2 g/dL | [facility] | | | Total | | | LABORATORY | | + + + + + + | Albumin | 4.7 | 3.6 - 5.0 g/dL | [facility] | | | | | | LABORATORY | | + + + + + + | Globulin | 2.6 | 1.3 - 4.9 g/dL | [facility] | | | | | | LABORATORY | | + + + + + + | A/G Ratio | 1.8 | 1.0 - 2.4 | [facility] | | | | | | LABORATORY | | + + + + + + | BILIRUBIN, | 2.2 (H) | 0.1 - 1.5 mg/dL | [facility] | | | TOTAL | | | LABORATORY | | + + + + + + | ALK PHOS | 72 | 35 - 115 U/L | [facility] | | | | | | LABORATORY | | + + + + + + | AST | 27 | 10 - 45 U/L | [facility] | | | | | | LABORATORY | | + + + + + + | ALT | 33 | 10 - 65 U/L | [facility] | | | | | | LABORATORY | | + + + + + + | Estimated | >60Comment: GFR <60: | >60 | [facility] | | | GFR | CHRONIC KIDNEY DISEASE, | mL/min/1.73m2 | LABORATORY | | | | IF FOUND OVER A 3 MONTH | | | | | | PERIOD.GFR <15: KIDNEY | | | | | | FAILURE.FOR | | | | | | AMERICANS, MULTIPLY THE | | | | | | CALCULATED GFR BY | | | | | | 1.210.This eGFR is | | | | | | calculated using the | | | | | | MDRD IDMS traceable | | | | | | equation.Testing | | | | | | performed at [facility] | | | | | | [facility];[place], [place] | | | | | | [address] | | | | + + + + + + + + | Specimen | + + | | + + + + + + + | Performing | Address | City/State/Zipcode | Phone Number | | Organization | | | | + + + + + | [facility] | [address] | [place] [address] | [phone] | + + + + + ECG 12 lead (05/29/2019 11:54 PDT) + + + + + + | Component | Value | Ref Range | Performed | Pathologist | | | | | At | Signature | + + + + + + | VENTRICULAR | 113 | BPM | [facility] | | | RATE EKG | | | | | + + + + + + | ATRIAL RATE | 113 | BPM | [facility] | | + + + + + + | P-R | 126 | ms | [facility] | | | INTERVAL | | | | | + + + + + + | QRS | 82 | ms | [facility] | | | DURATION | | | | | + + + + + + | Q-T | 318 | ms | [facility] | | | INTERVAL | | | | | + + + + + + | Q-T | 436 | ms | [facility] | | | INTERVAL | | | | | | (CORRECTED) | | | | | + + + + + + | P WAVE AXIS | 61 | degrees | [facility] | | + + + + + + | QRS AXIS | 62 | degrees | [facility] | | + + + + + + | T AXIS | 48 | degrees | [facility] | | + + + + + + | INTERPRETAT | Sinus | | [facility] | | | ION TEXT | tachycardiaOtherwise | | | | | | normal ECGWhen compared | | | | | | with ECG of 12-NOV-2017 | | | | | | 17:14,No significant | | | | | | change was foundThis ECG | | | | | | contains Unconfirmed | | | | | | Interpretation | | | | | | Statements. See ED | | | | | | Record for Physician | | | | | | Interpretation. | | | | | | Confirmed by MUSE READ | | | | | | ONLY, -COMPUTER ([id number]), | | | | | | editor news Haseeb Min | | | | | | (132) on 05/30/2019 | | | | | | 10:50:41 AM | | | | + + + + + + + + | Specimen | + + | | + + + + + | Narrative | Performed At | + + + | | | + + + + +---------+ + + | Performing | Address | City/State/Zipcode | Phone Number | | Organization | | | | + +---------+ + + | [facility] | | | | + +---------+ + + CBC with Differential (05/29/2019 11:53 PDT) + + + + + + | Component | Value | Ref Range | Performed | Pathologist | | | | | At | Signature | + + + + + + | WBC | 9.25 | 3.80 - 11.00 | [facility] | | | | | K/uL | LABORATORY | | + + + + + + | RBC | 6.06 (H) | 4.20 - 5.70 | [facility] | | | | | M/uL | LABORATORY | | + + + + + + | Hemoglobin | 19.8 (H) | 13.2 - 17.0 | [facility] | | | | | g/dL | LABORATORY | | + + + + + + | Hematocrit | 58.7 (H) | 39.0 - 50.0 % | [facility] | | | | | | LABORATORY | | + + + + + + | MCV | 96.9 | 80.0 - 100.0 fl | [facility] | | | | | | LABORATORY | | + + + + + + | MCH | 32.7 | 27.0 - 34.0 pg | [facility] | | | | | | LABORATORY | | + + + + + + | MCHC | 33.7 | 32.0 - 35.5 | [facility] | | | | | g/dL | LABORATORY | | + + + + + + | RDW-SD | 46.4 | 37 - 53 fl | [facility] | | | | | | LABORATORY | | + + + + + + | Platelet | 321 | 150 - 400 K/uL | [facility] | | | Count | | | LABORATORY | | + + + + + + | MPV | 9.1 | fl | [facility] | | | | | | LABORATORY | | + + + + + + | Diff Type | AUTOMATED | | [facility] | | | | | | LABORATORY | | + + + + + + | % | 66.91 | % | [facility] | | | Neutrophils | | | LABORATORY | | + + + + + + | % | 17.72 | % | [facility] | | | Lymphocytes | | | LABORATORY | | + + + + + + | Monocyte % | 7.95 | % | [facility] | | | | | | LABORATORY | | + + + + + + | Eosinophils | 6.73 | % | [facility] | | | % | | | LABORATORY | | + + + + + + | Basophils % | 0.69 | % | [facility] | | | | | | LABORATORY | | + + + + + + | Neutrophils | 6.19 | 1.90 - 7.40 | [facility] | | | , Absolute | | K/uL | LABORATORY | | + + + + + + | Absolute | 1.64 | 1.00 - 3.90 | [facility] | | | Lymphocytes | | K/uL | LABORATORY | | + + + + + + | Absolute | 0.74 | 0.00 - 0.80 | [facility] | | | Monocytes | | K/uL | LABORATORY | | + + + + + + | Eosinophils | 0.62 (H) | 0.00 - 0.50 | [facility] | | | , Absolute | | K/uL | LABORATORY | | + + + + + + | Basophils, | 0.06Comment: Testing | 0.00 - 0.10 | [facility] | | | Absolute | performed at [facility];[address] | LABORATORY | | | | [address] [facility];[place], [place] | | | | | | [address] | | | | + + + + + + + + | Specimen | + + | Blood | + + + + + + + | Performing | Address | City/State/Zipcode | Phone Number | | Organization | | | | + + + + + | [facility] | [address] | [place] [address] | [phone] | + + + + + from Last 3 Months Insurance + +--------+ +--------+ +---------+--------+ | Payer | Benefi | Subscriber | Effect | Phone | Address | Type | | | t Plan | ID | jeannette | | | | | | / | | Dates | | | | | | Group | | | | | | + +--------+ +--------+ +---------+--------+ | MEDICARE | RAILRO | [id number] | 12/09/19 | [phone] | | Medica | | | AD | | 14-Pre | 5 | | re | | | MEDICA | | sent | | | | | | RE | | | | | | + +--------+ +--------+ +---------+--------+ | MEDICARE | RAILRO | [id number] | 12/09/19 | [phone] | | Medica | | | AD | | 14-Pre | 5 | | re | | | MEDICA | | sent | | | | | | RE | | | | | | + +--------+ +--------+ +---------+--------+ + +--------+ +--------+ + + | Guarantor Name | Accoun | Relation to | Date | Phone | Billing Address | | | t Type | Patient | of | | | | | | | | | | + +--------+ +--------+ + + | Jesus Walton | Person | Self | [birth year] | [address] | | [place] | leonidas/Ajith | | 1965 | | [place] | | | [place] | | | [address] (Home) | [phone] | + +--------+ +--------+ + + | Jesus Walton | Person | Self | [birth year] | [address] | | [place] | leonidas/Ajith | | 1965 | | [place] | | | [place] | | | [address] (Home) | [address] | + +--------+ +--------+ + + Advance Directives Patient has advance care planning documents, and code status on file. For more information, please contact:[facility] [place] [address] + + + + + | Code Status | Date | Date | Comments | | | Activated | Inactivated | | + + + + + | Full Code | 05/29/2019 | 05/31/2019 | | | | 17:14 | 15:49 | | + + + + +
--- OUTSIDE RECORDS SUMMARY | ~2019-07-08 | XMS | Encounter Summary ---
Demographics + + + | Address | [address] | | | [place] [address] | + + + | Home Phone | | + + + | Preferred Language | Unknown | + + + | Marital Status | | + + + | Cheondoism Affiliation | 1027 | + + + | Race | Unknown | + + + | Ethnic Group | Unknown | + + + Author + + + | Author | [facility] (Historical as of | | | 04-25-19) | + + + | Organization | [facility] (Historical as of | | | 04-25-19) [...] Team Providers + +------+ + | Care Billing Clinician Name | Role | Phone | + +------+ + | Radha Rowland MD | PCP | | + +------+ + Reason for Visit + + + | Reason | Comments | + + + | Medication Refill | Albuerol | + + + Encounter Details +--------+--------+ + + + | Date | Type | Department | Care Team | Description | +--------+--------+ + + + | 04/21/ | Refill | [facility] | Cale Brown, | Severe persistent | | 2019 | | [facility] | [employer]INTER | asthma with acute | | | | Care [address] | | exacerbation; | | | | [address] [place], [place] | | Moderate persistent | | | | [address] | | asthma with acute | | | | | | exacerbation | +--------+--------+ + + + Social History [...] on file | | + + + as of this encounter Plan of Treatment Not on fileas of this encounter Visit Diagnoses + + | Diagnosis | + + | Severe persistent asthma with acute exacerbation | + + | Unspecified asthma, with exacerbation | + + | Moderate persistent asthma with acute exacerbation | + +"
--- OUTSIDE RECORDS SUMMARY | ~2019-07-08 | XMS | Encounter Summary ---
Demographics + + + | Address | [address] | | | [place] [address] | + + + | Home Phone | | + + + | Preferred Language | Unknown | + + + | Marital Status | | + + + | Episcopal Affiliation | 1027 | + + + | Race | Unknown | + + + | Ethnic Group | Unknown | + + + Author + + + | Author | [facility] (Historical as of | | | 04-25-19) | + + + | Organization | [facility] (Historical as of | | | 04-25-19) [...] Team Providers + +------+ + | Care Cover Making Machine Operator Name | Role | Phone | + [...] + + | 04/21/ | Refill | [facility] | Cale Brown, | Severe persistent | | 2019 | | [facility] | [facility]ENTER | asthma with acute | | | | Care [address] | | exacerbation; | | | | [address] [place], [place] | | Moderate persistent | | | | [address] | | asthma with acute | | [...]
--- OUTSIDE RECORDS SUMMARY | ~2019-07-08 | XMS | Encounter Summary ---
Demographics + + + | Address | [address] | | | [place] [address] | + + + | Home Phone | | + + + | Preferred Language | Unknown | + + + | Marital Status | | + + + | Jewish Affiliation | 1027 | + + + | Race | Unknown | + + + | Ethnic Group | Unknown | + + + Author + + + | Author | [facility] | | | and Fengana | + + + | Organization | [facility] | | | and [...] Team Providers + +------+ + | Care Adult Care Manager Name | Role | Phone | + +------+ + | Radha Rowland MD | PCP | | + +------+ + Reason for Referral Evaluate & Treat (Routine) + + + + + + + | Status | Reason | Specialty | Diagnoses / | Referred By | Referred To | | | | | Procedures | Contact | Contact | + + + + + + + | Pending | Specialty | Pulmonary | Diagnoses | [place], | [place], | | Review | Services | Disease / | Acute | MD Norman | Raul | | | Required | Pulmonology | respiratory | [address] | Bishnu Granados MD | | | | | failure with | Blvd | [address] | | | | | hypoxia | [place] | CRISTINA GEE | | | | | ([facility]) | [address] | JOSEFA [address] | | | | | | Phone: | [place] | | | | | | [phone] | [address] Phone: | | | | | | Fax: | [phone] | | | | | | [phone] | Fax: | | | | | | | [phone] | + + + + + + + Reason for Visit + + + | Reason | Comments | + + + | Shortness of Breath | "Just my asthma" | + + + | Anxiety | | + + + Encounter Details +--------+ + + + + | Date | Type | Department | Care Team | Description | +--------+ + + + + | 05/29/ | Hospital | [facility] | Jesus Cotter | Pneumonia of both | | 2019 - | Encounter | [facility] | MD Bertrand [address] | lower lobes due to | | | | C[address]LO[address] | [address]NA[address], | infectious organism | | 05/31/ | | [address] | [place] [address] | ([facility]) (Primary Dx); | | 2019 | | [place], [place] | [phone] | Exacerbation of | | | | [address] | | asthma, unspecified | | | | [phone] | Jerry Dela Cruz DO | asthma severity, | | | | | [address] | unspecified whether | | | | | [address] | persistent; | | | | | [place] [address] | Respiratory | | | | | [phone] | distress; Acute | | | | | | respiratory failure | | | | | Norman Portillo MD | with hypoxia (HCC); | | | | | [address] | Anxiety; Asthma, | | | | | [place] [address] | unspecified asthma | | | | | [phone] | severity, | | | | | [...] persistent | +--------+ + + + + Social [...] + + documented as of this encounter Last Filed Vital Signs + + + [...] 05/29/20191726 PDT | + + + + documented in this encounter Discharge Summaries Norman Portillo MD - 05/31/2019 1212 PDT [facility] Service: Hospitalist Discharge Summary Date of Admission: 05/29/2019 Date of Discharge: 05/31/2019 Discharge Provider: Norman Portillo MD Discharge Diagnoses: Principal Problem: Asthma with acute exacerbation Active Problems: Acute respiratory failure with hypoxia Anxiety Resolved Problems: * No resolved hospital problems. * BRIEF HISTORY OF PRESENTATION: Jesus Walton is a 54 y.o. male who history of asthma presents the ED with 2-week history of progressively worsening shortness of breath cough runny nose sore throat. He possibly had a sick contact. Patient was in moderate to severe respiratory distress he was started on IV steroids and nebulizer treatment bylerb-cnt-svyak. Within 48 hours his wh eezing had significantly improved he was transitioned to oral steroids and discharged home w ith prescriptions for inhalers and albuterol nebulizer. Patient was strongly advised to fol low-up with Dr. Fragoso as outpatient. Patient could not afford his Advair that is why he i s not been using it. DISCHARGE EXAM Vital Signs: BP 122/67 | Pulse 91 | Temp 36.6 C (97.8 F) (Oral) | Resp 22 | Ht 1.727 m (5' 8") | Wt 78.9 kg (174 lb) | SpO2 92% | BMI 26.46 kg/m Physical Exam General appearance: alert, appears stated age and cooperative Eyes: conjunctivae/corneas clear. PERRL, EOM's intact. Fundi benign. Neck: no JVD Lungs: wheezes mild b/l in lower lobe Abdomen: soft, non-tender; bowel sounds normal; no masses, no organomegaly DATA Recent Labs Lab 05/30/19 0554 05/29/19 1153 WBC 13.58* 9.25 HGB 16.8 19.8* HCT 50.3* 58.7* PLT 293 321 MONOPCT -- 7.95 Recent Labs Lab 05/30/19 0554 05/29/19 1245 NA 141 143 K 4.0 3.7 CL 108 108 CO2 24 25 BUN 14 13 CALCIUM 9.1 10.1 ALKPHOS -- 72 ALT -- 33 AST -- 27 Phosphorus: Lab Results Component Value Date PHOS 4.5 05/30/2019 No results for input(s): LABALBU in the last 168 hours. Recent Labs Lab 05/30/19 0554 MG 2.1 No results for input(s): AMYLASE in the last 168 hours. No results for input(s): PHART, PO2ART, UFQ7PAB, K1PYUBCM, BEART in the last 168 hours. No results for input(s): APTT, INR, PTT in the last 168 hours. No results for input(s): TSH in the last 168 hours. Invalid input(s): T3FREE, FREET4 Recent Labs Lab 05/29/19 1245 TROPONINT <0.006 Radiology No results found. Disposition: home Condition: Fair Code Status: Full Code Discharge Procedure Orders Ambulatory Referral to [facility] Pulmonology Referral Priority: Routine Referral Type: Evaluate & Treat Referral Reason: Specialty Services Required Referred to Provider: RAUL FRAGOSO Requested Specialty: Pulmonary Disease Number of Visits Requested: 1 Follow up: Radha Rowland MD [address] [facility] [id number] In 1 week Raul Fragoso MD [address] DIAL [facility] [id number] In 1 month Discharge Medications New Medications Details clonazePAM 0.5 mg tablet Take 1 tablet by mouth Twice daily as needed for Anxiety. aka: klonoPIN predniSONE 20 mg tablet Take 2 tablets by mouth Daily for 4 days. aka: DELTASONE Unchanged Medications Details albuterol 90 mcg/puff inhaler Inhale 2 puffs into the lungs every 6 hours as needed for Wheezing for up to 10 days. aka: PROAIR HFA albuterol 2.5 mg/3 mL nebulizer solution USE 1 VIAL IN NEBULIZER 4 TIMES DAILY NEEDED Discharge took 35 minutes, to include final examination, discussion of admission, and prepa ration of prescriptions, instructions for on-going care, follow-up and documentation of disc harge summary. Norman Portillo MD 05/31/2019 12:12 documented in this e ncounter Medications at Time of Discharge + + + +---------+ + + | Medication | Sig | Dispensed | Refills | Start | End Date | | | | | | Date | | + + + +---------+ + + | albuterol 2.5 mg/3 | USE 1 VIAL IN | 75 mL | 3 | 05/31/ | | | mL nebulizer | NEBULIZER 4 TIMES | | | 19 | | | solutionIndications: | DAILY NEEDED | | | | | | Acute respiratory | | | | | | | failure with hypoxia | | | | | | | ([facility]), Asthma, | | | | | | [...] distress | | | | | | + + + +---------+ + + | clonazePAM | Take 1 tablet by | 10 | 0 | 05/31/20 | | | (KLONOPIN) 0.5 mg | mouth Twice daily | tablet | | 19 | | | tablet | as needed for | | | | | | | Anxiety. | | | | | + + + +---------+ + + | albuterol (PROAIR | Inhale 2 puffs into | 18 g | 3 | 05/31/20 | | | HFA) 90 mcg/puff | the lungs every 6 | | | 19 | 9 | | inhaler | hours as needed for | | | | | | | Wheezing for up to | | | | | | | 10 days. | | | | | + + + +---------+ + + | predniSONE | Take 2 tablets by | 8 | 0 | 05/31/20 | | | (DELTASONE) 20 mg | mouth Daily for 4 | tablet | | 19 | 9 | | tablet | days. | | | | | + + + +---------+ + + documented as of this encounter Progress Notes Norman Portillo MD - 05/30/2019 1352 PDT [facility] Service: Hospitalist Progress Note Hospital Day: LOS: 1 day SUBJECTIVE Patient Summary: Events Overnight: Patient reports slight improvement in shortness of breath and wheezi ng. He was appreciative of getting treatment for his anxiety. He requested to keep the Zacarias ax on board as once he gets his anxiety attack his breathing gets really bad. Scheduled Medications albuterol-ipratropium 3 mL Nebulization Q4H While awake enoxaparin 40 mg Subcutaneous Daily FLUoxetine 20 mg Oral Daily methylPREDNISolone sodium succinate 40 mg Intravenous 2 times per day Continuous Infusions OBJECTIVE Vital Signs: BP 95/57 | Pulse 112 | Temp 36.5 C (97.7 F) (Oral) | Resp 20 | Ht 1.727 m (5' 8") | Wt 78.9 kg (174 lb) | SpO2 94% | BMI 26.46 kg/m Physical Exam General appearance: alert, appears stated age and cooperative Eyes: conjunctivae/corneas clear. PERRL, EOM's intact. Fundi benign. Neck: no adenopathy, no carotid bruit, no JVD, supple, symmetrical, trachea midline and thy roid not enlarged, symmetric, no tenderness/mass/nodules Lungs: Wheezing b/l Abdomen: soft, non-tender; bowel sounds normal; no masses, no organomegaly DATA Recent Labs Lab 05/30/19 0554 05/29/19 1153 WBC 13.58* 9.25 HGB 16.8 19.8* HCT 50.3* 58.7* PLT 293 321 MONOPCT -- 7.95 Recent Labs Lab 05/30/19 0554 05/29/19 1245 NA 141 143 K 4.0 3.7 CL 108 108 CO2 24 25 BUN 14 13 CALCIUM 9.1 10.1 ALKPHOS -- 72 ALT -- 33 AST -- 27 Phosphorus: Lab Results Component Value Date PHOS 4.5 05/30/2019 No results for input(s): LABALBU in the last 168 hours. Recent Labs Lab 05/30/19 0554 MG 2.1 No results for input(s): AMYLASE in the last 168 hours. No results for input(s): PHART, PO2ART, VRC4WIU, H0WILYPE, BEART in the last 168 hours. No results for input(s): APTT, INR, PTT in the last 168 hours. No results for input(s): TSH in the last 168 hours. Invalid input(s): T3FREE, FREET4 Recent Labs Lab 05/29/19 1245 TROPONINT <0.006 Radiology Xr Chest Pa And Lateral Result Date: 05/29/2019 CHEST PA AND LATERAL CLINICAL INFORMATION: Shortness of breath and anxiety. COMPARISON: XR CHEST 1 VIEW (11/12/2017); XR CHEST 1 VIEW (09/26/2017); XR CHEST 2 VIEW (06/14/2017); FINDINGS: The heart is normal in size. No pulmonary vascular congestion. Tiny bilateral pleural eff usions. No pneumothorax. IMPRESSION: Tiny bilateral pleural effusions. Signed by: Missy Robin Chet Sign Date/Time: 05/29/2019 2:09 PM PROBLEM LIST Principal Problem: Asthma with acute exacerbation Active Problems: Acute respiratory failure with hypoxia Anxiety Resolved Problems: * No resolved hospital problems. * ASSESSMENT & PLAN Acute asthma exacerbation continue IV steroids and nebulizer. Respiratory film array negat jeannette Severe anxiety disorder she he was started on fluoxetine continue PRN Xanax Code Status: Full Code Norman Portillo MD 05/30/2019 13:52 Iliana Epstein RN - 05/30/2019 0559 PDTPatient noted to be dyspneic and with audible wheezing. Patien t stated "I'm having an asthma attack" " I can't breath" . Patient was placed on 4 L of oxyg en via nasal canula and RT was called. Neb treatment was administered. Patient stated that b reathing improved after neb treatment. PRN Xanax given x1 . Patient verbalized improvement of anxiety. After neb treatment and Xanax patients' breathing was noted to become regular. Will continue to monitor. 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 Note Patients Preferred Pharmacy has been updated in EPIC: yes Patients Allergies have been updated and marked as reviewed: yes Ibuprofen The following changes were made to the allergy list (if any): N/A Medication History provided by: Patient and [employer] Info Follow-up Issues: None- Pending Pharmacist Review High Risk Medications (dual source verification needed): None Changes made to the medication list include: N/A Reliability of information obtained: RELIABLE Additional Comments: N/A Medication history has been completed: Awaiting Pharmacist Final Review Carla Swanson [facility] 05/29/2019 16:40 Electronically signed by Tatyana Chinchilla [facility] at 05/29/2019 18:33 PDTdocumented in this encounter Plan of Treatment + +--------+ + + | Name | Priori | Associated Diagnoses | Date/Time | | | ty | | | + +--------+ + + | ED INFORMATION EXCHANGE | Routin | | 05/29/2019 11:21 PDT | | | e | | | + +--------+ + + + +--------+ + + | Name | Priori | Associated Diagnoses | Order Schedule | | | ty | | | + +--------+ + + | Ambulatory Referral to [facility] | Routin | Acute respiratory | Ordered: 05/31/2019 | | Pulmonology | e | failure with hypoxia | | | | | (HCC) | | + +--------+ + + documented as of this encounter Procedures + +--------+ [...] | | n - | | | 05/29/ | | | 2018 | | | [...] | | | FICATI | | | ON?09/ | | | 20/201 | | | 9 | | | 11:21? | | | PHILLI | | | PS, | | | MICHAE | | | L | | | R?MRN: | | | | | | [id number] | | | [id number] | | | riteri | | | [...] | JEAN PIERRE | | | L ASSISTANT IMPORT MANAGER | | | | | | LORRAI | | | NE, | | | MOLECULAR SPECTROSCOPIST | | | Nurse | | | [...] [email or web address] | | | m | +---+--------+ documented in this encounter Results Respiratory pathogen panel, NAAT (05/30/2019 9:58 [...] Interpretat | Testing performed by | | [facility] | | | ion: | Molecular | | LABORATORY | | | | MethodologyComment: | | | | | | Testing performed at | | | | | | [facility], [address] | | | | | | [place] | | | | | | [address] | | | | + + + + + + + + | Specimen | + + | Tissue | + + + + + + + | Performing | Address | City/State/Zipcode | Phone Number | | Organization | | | | + + + + + | [facility] | [address] | [place] [address] | [phone] | + + + + + Phosphorus (05/30/2019 5:54 PDT) + + + + + + | Component | Value | Ref Range | Performed | Pathologist | | | | | At | Signature | + + + + + + | Phosphorus | 4.5Comment: Testing | 2.3 - 4.8 mg/dL | [facility] | | | | performed at [facility], [address] | | LABORATORY | | | | [address], | | | | | | [place] [address] | | | | + + + + + + + + | Specimen | + + | Blood | + + + + + + + | Performing | Address | City/State/Zipcode | Phone Number | | Organization | | | | + + + + + | [facility] | [address] | [place] [address] | [phone] | + + + + + Magnesium (05/30/2019 5:54 PDT) + + + + + + | Component | Value | Ref Range | Performed | Pathologist | | | | | At | Signature | + + + + + + | Magnesium | 2.1Comment: Testing | 1.7 - 2.4 mg/dL | [facility] | | | | performed at [facility], [address] | | LABORATORY | | | | [address] [place], | | | | | | [place] [address] | | | | + + + + + + + + | Specimen | + + | Blood | + + + + + + + | Performing | Address | City/State/Zipcode | Phone Number | | Organization | | | | + + + + + | [facility] | [address] | [place] [address] | [phone] | + + + + + CBC no Differential (05/30/2019 5:54 PDT) + + + + + + | Component | Value | Ref Range | Performed | Pathologist | | | | | At | Signature | + + + + + + | WBC | 13.58 (H) | 3.80 - 11.00 | [facility] | [...] [facility] | | | | performed at [facility], [address] | | LABORATORY | | | | [address], | | | | | | [place] [address] | | | | + + + + + + + + | Specimen | + + | Blood | + + + + + + + | Performing | Address | City/State/Zipcode | Phone Number | | Organization | | | | + + + + + | [facility] | [address] | [place] [address] | [phone] | + + + + + Basic [...] | 9.1 | 8.5 - 10.5 | [facility] | | | | | mg/dL | LABORATORY | | + + + + + + | Estimated | >60Comment: GFR <60: | >60 | [facility] | | | GFR | CHRONIC KIDNEY [...] | | | | | | MDRD [facility] traceable | | | | | | equation.Testing | | | | | | performed at [facility], [address] | | | | | | [address] [facility], | | | | | | [place] [address] | | | | + + + + + + + + | Specimen | + + | Blood | + + + + + + + | Performing | Address | City/State/Zipcode | Phone Number | | Organization | | | | + + + + + | [facility] | [address] | [place] [address] | [phone] | + + + + + Culture, Blood (05/29/2019 15:12 PDT) + + + + + + [...] Special | Testing performed at | | [facility] | | | Requests | [address] | | LABORATORY | | | | [address];[place] [address] | | | | + + + + + + | RESULT | NO GROWTH 6 DAYS | | [facility] | | | | | | LABORATORY | | + + + + + + | RESULT | Testing performed at | | [facility] | | | | [facility], [address] [facility] | | LABORATORY | | | | [place], [place] | | | | | | [id number]: Testing | | | | | | performed at [facility], [address] | | | | | | [place], [place] | | | | | | [address] | | | | + + + + + + + + | Specimen | + + | Blood | + + + + + + + | Performing | Address | City/State/Zipcode | Phone Number | | Organization | | | | + + + + + | [facility] | [address] | [place] [address] | [phone] | + + + + + Culture, Blood (05/29/2019 14:41 PDT) + + + + + + | Component | Value | Ref Range | Performed | Pathologist | | | | | At | Signature | + + + + + + | Special | LAC | | [facility] | | | Requests | | | LABORATORY | | + + + + + + | Special | Testing performed at | | [facility] | | | Requests | [facility];[address] | | LABORATORY | | | | [address];[place] [address] | | | | + + + + + + | RESULT | NO GROWTH 6 DAYS | | [facility] | | | | | | LABORATORY | | + + + + + + | RESULT | Testing performed at | | [facility] | | | | [facility], [address] | | LABORATORY | | | | [place] | | | | | | [id number]: Testing | | | | | | performed at [facility], [address] | | | | [address], [place], [place] | | | | | | [address] | | | | + + + + + + + + | Specimen | + + | Blood | + + + + + + + | Performing | Address | City/State/Zipcode | Phone Number | | Organization | | | | + + + + + | [facility] | [address] | [place] [address] | [phone] | + + + + + XR [...] PROCALCITON | <0.05Comment: | <0.5 ng/mL | [facility] | | | IN | INTERPRETIVE | [...] | | | | | | at [facility];[address] [place] [address] | | | | | | [facility];[place] [address] | | | | + + + + + + + + | Specimen | + + | Blood | + + + + + + + | Performing | Address | City/State/Zipcode | Phone Number | | Organization | | | | + + + + + | [facility] | [address] | [place] [address] | [phone] | + + + + + Comprehensive [...] 33 | 10 - 65 U/L | [facility] | | | | | | LABORATORY | | + + + + + + | Estimated | >60Comment: GFR <60: | >60 | [facility] | | | GFR | CHRONIC KIDNEY [...] | | | | | | MDRD [facility] traceable | | | | | | equation.Testing | | | | | | performed at [facility];[address] | | | | | | [facility];[place], [place] | | | | | | [address] | | | | + + + + + + + + | Specimen | + + | | + + + + + + + | Performing | Address | City/State/Zipcode | Phone Number | | Organization | | | | + + + + + | [facility] | [address] | [place] [address] | [phone] | + + + + + Troponin I (05/29/2019 12:45 PDT) + + + + + + | Component | Value | Ref Range | Performed | Pathologist | | | | | At | Signature | + + + + + + | Troponin I | <0.006Comment: 0.04 | 0.00 - 0.04 | [facility] | | | | ng/mL or | [...] at | | | | | | [facility];[address] [facility] [address] | | | | | | [facility];[place] [address] | | | | + + + + + + + + | Specimen | + + | | + + + + + + + | Performing | Address | City/State/Zipcode | Phone Number | | Organization | | | | + + + + + | [facility] | [address] | [place] [address] | [phone] | + + + + + ECG [...] | | | | | ONLY, -COMPUTER (580), | | | | | | desk editor Haseeb Min | | | | | [...] 0.06Comment: Testing | 0.00 - 0.10 | [facility] | | | Absolute | performed at [facility];[address] | LABORATORY | | | | [address];[place] | | | | | | [address] | | | | + + + + + + + + | Specimen | + + | Blood | + + + + + + + | Performing | Address | City/State/Zipcode | Phone Number | | Organization | | | | + + + + + | [facility] | [address] | [place] [address] | [phone] | + + + + + documented in this encounter Visit Diagnoses + + | Diagnosis | + + | Asthma with acute exacerbation - Primary Unspecified asthma, with exacerbation | + + | Pneumonia of both lower lobes due to infectious organism (HCC) | + + | Exacerbation of asthma, unspecified asthma severity, unspecified whether persistent | + + | Respiratory distress Other dyspnea and respiratory abnormality | + + | Acute respiratory failure with hypoxia (HCC) Acute respiratory failure | + + | Anxiety Anxiety state, unspecified | + + | Asthma, unspecified asthma severity, unspecified whether complicated, unspecified | | whether persistent | + + | Asthma with status asthmaticus, unspecified asthma severity, unspecified whether | | persistent | + + documented in this encounter Administered Medications + +--------+ +--------+------+------+ | Medication Order | MAR | Action | Dose | Rate | Site | | | Action | Date | | | | + +--------+ +--------+------+------+ | acetaminophen (TYLENOL) tablet | Given | 05/31/20 | 650 mg | | | | 650 mg 650 mg, Oral, EVERY 4 | | 19 4:17 | | | | | HOURS PRN, Pain, or fever >= 38.6 | | PDT | | | | | C (101.5 F), Starting Fri | | | | | | | 05/29/19 at 1713 | | | | | | + +--------+ +--------+------+------+ +---+---+ | | | +---+---+ + +-------+ +-------+---+---+ | albuterol 5 mg/mL concentrated | Given | 05/29/20 | 10 mg | | | | nebulizer solution 10 mg 10 mg, | | 19 11:50 | | | | | Nebulization, RT Once, Fri | | PDT | | | | | 05/29/19 at 1145, For 1 dose, RT | | | | | | | will administer., | | | | | | + +-------+ +-------+---+---+ +---+---+ | | | +---+---+ + +-------+ +-------+---+---+ | albuterol-ipratropium 2.5-0.5 | Given | 05/29/20 | 3 mLs | | | | mg/3 mL nebulizer solution 3 mL | | 19 11:46 | | | | | 3 mL, Nebulization, RT Q6H, First | | PDT | | | | | dose on 05/29/19 at 1145 | | | | | | + +-------+ +-------+---+---+ +---+---+ | | | +---+---+ + +-------+ +-------+---+---+ | albuterol-ipratropium 2.5-0.5 | Given | 05/31/20 | 3 mLs | | | | mg/3 mL nebulizer solution 3 mL | | 19 4:10 | | | | | 3 mL, Nebulization, EVERY 4 HOURS | | PDT | | | | | WHILE AWAKE, First dose on Fri | | | | | | | 05/29/19 at 1620 | | | | | | + +-------+ +-------+---+---+ +-------+ +-------+---+---+ | Given | 05/30/20 | 3 mLs | | | | | 19 21:02 | | | | | | PDT | | | | +-------+ +-------+---+---+ | Given | 05/30/20 | 3 mLs | | | | | 19 16:49 | | | | | | PDT | | | | +-------+ +-------+---+---+ +---+---+ | | | +---+---+ + +-------+ +--------+---+---+ | ALPRAZolam (XANAX) tablet 0.5 | Given | 05/31/20 | 0.5 mg | | | | mg 0.5 mg, Oral, EVERY 8 HOURS | | 19 12:32 | | | | | PRN, Anxiety, Starting Fri | | PDT | | | | | 05/29/19 at 1738 | | | | | | + +-------+ +--------+---+---+ +-------+ +--------+---+---+ | Given | 05/31/20 | 0.5 mg | | | | | 19 4:17 | | | | | | PDT | | | | +-------+ +--------+---+---+ | Given | 05/30/20 | 0.5 mg | | | | | 19 14:52 | | | | | | PDT | | | | +-------+ +--------+---+---+ +---+---+ | | | +---+---+ + +---------+ +-----+-------+---+ | cefTRIAXone (ROCEPHIN) IVPB 1 g | New Bag | 05/29/20 | 1 g | 100 | | | 1 g, Intravenous, Administer | | 19 15:23 | | mL/hr | | | over 30 Minutes, ONCE, Fri | | PDT | | | | | 05/29/19 at 1405, For 1 dose, Keep | | | | | | | in refrigerator., Indications: | | | | | | | Pneumonia | | | | | | + +---------+ +-----+-------+---+ +---+---+ | | | +---+---+ + +-------+ +-------+---+ + | enoxaparin (LOVENOX) 40 mg/0.4 | Given | 05/30/20 | 40 mg | | Abdomen- | | mL injection 40 mg 40 mg, | | 19 18:21 | | | RLQ | | Subcutaneous, EVERY 24 HOURS | | PDT | | | | | (Daily), First dose on Sat | | | | | | | 05/29/19 at 1800 | | | | | | + +-------+ +-------+---+ + +-------+ +-------+---+ + | Given | 05/29/20 | 40 mg | | Abdomen- | | | 19 18:07 | | | RLQ | | | PDT | | | | +-------+ +-------+---+ + +---+---+ | | | +---+---+ + +-------+ +-------+---+---+ | FLUoxetine (PROzac) capsule 20 | Given | 05/31/20 | 20 mg | | | | mg 20 mg, Oral, DAILY, First | | 19 9:37 | | | | | dose on Sat05/29/19 at 1745 | | PDT | | | | + +-------+ +-------+---+---+ +-------+ +-------+---+---+ | Given | 05/30/20 | 20 mg | | | | | 19 9:53 | | | | | | PDT | | | | +-------+ +-------+---+---+ | Given | 05/29/20 | 20 mg | | | | | 19 18:07 | | | | | | PDT | | | | +-------+ +-------+---+---+ +---+---+ | | | +---+---+ + +-------+ +-------+---+---+ | hydrOXYzine pamoate (VISTARIL) | Given | 05/31/20 | 25 mg | | | | capsule 25 mg 25 mg, Oral, EVERY | | 19 9:37 | | | | | 8 HOURS PRN, Anxiety, Starting | | PDT | | | | | 05/29/19 at 1525 | | | | | | + +-------+ +-------+---+---+ +-------+ +-------+---+---+ | Given | 05/30/20 | 25 mg | | | | | 19 10:08 | | | | | | PDT | | | | +-------+ +-------+---+---+ | Given | 05/29/20 | 25 mg | | | | | 19 16:53 | | | | | | PDT | | | | +-------+ +-------+---+---+ +---+---+ | | | +---+---+ + +---------+ +--------+-------+---+ | lactated ringers (LR) bolus | New Bag | 05/29/20 | 1,000 | 2000 | | | 1,000 mL 1,000 mL, Intravenous, | | 19 12:06 | mLs | mL/hr | | | Administer over 30 Minutes, ONCE, | | PDT | | | | | 05/29/19 at 1145, For 1 dose | | | | | | + +---------+ +--------+-------+---+ +---+---+ | | | +---+---+ + +-------+ +------+---+---+ | LORazepam (ATIVAN) injection 1 | Given | 05/29/20 | 1 mg | | | | mg 1 mg, Intravenous, ONCE, Fri | | 19 12:09 | | | | | 05/29/19 at 1145, For 1 dose | | PDT | | | | + +-------+ +------+---+---+ +---+---+ | | | +---+---+ + +---------+ +-----+ +---+ | magnesium sulfate 2 g/50 mL | New Bag | 05/29/20 | 2 g | 25 mL/hr | | | IVPB 2 g 2 g, Intravenous, | | 19 12:47 | | | | | Administer over 120 Minutes, | | PDT | | | | | ONCE, 05/29/19 at 1230, For 1 | | | | | | | dose, Maximum recommended | | | | | | | infusion rate = 1 gram/hour., | | | | | | + +---------+ +-----+ +---+ +---+---+ | | | +---+---+ + +-------+ +-------+---+---+ | methylPREDNISolone sodium | Given | 05/31/20 | 40 mg | | | | succinate (solu-MEDROL) 40 mg/mL | | 19 9:37 | | | | | injection 40 mg 40 mg, | | PDT | | | | | Intravenous, EVERY 12 HOURS (2 | | | | | | | times per day), First dose on Sat | | | | | | | 05/30/19 at 0900, Mix with 1 mL | | | | | | | provided diluent to make 40 | | | | | | | mg/mL., | | | | | | + +-------+ +-------+---+---+ +-------+ +-------+---+---+ | Given | 05/30/20 | 40 mg | | | | | 19 21:00 | | | | | | PDT | | | | +-------+ +-------+---+---+ | Given | 05/30/20 | 40 mg | | | | | 19 9:54 | | | | | | PDT | | | | +-------+ +-------+---+---+ +---+---+ | | | +---+---+ + +-------+ +--------+---+---+ | methylPREDNISolone sodium | Given | 05/29/20 | 125 mg | | | | succinate (solu-MEDROL) 62.5 | | 19 12:14 | | | | | mg/mL injection 125 mg 125 mg, | | PDT | | | | | Intravenous, ONCE, 05/29/19 at | | | | | | | 1145, For 1 dose, Mix with 2 mL | | | | | | | provided diluent to make 62.5 | | | | | | | mg/mL., | | | | | | + +-------+ +--------+---+---+ +---+---+ | | | +---+---+ documented in this encounter
--- OUTSIDE RECORDS SUMMARY | ~2019-07-08 | XMS | Encounter Summary ---
Demographics + + + | Address | [address] | | | [place] [address] | + + + | Home Phone | | + + + | Preferred Language | Unknown | + + + | Marital Status | Single | + + + | Judaism Affiliation | NON | + + + | Race | White | + + + | Ethnic Group | Not or | + + + Author + + + | Author | [facility] | + + + | Organization | [facility] | + + + | Address | Unknown | + + + | Phone | Unavailable | + + + Care Team Providers + +------+ + | Care Nurse Midwife/Clinical Instructor Name | Role | Phone | + [...] | | | | | | [place] | | | | | | [address] | | | | | | [phone] | | | | | | | [...] + + + | LAST DOSE | CLINICAL LABORATORY AIDE | | MID-COLUMBI | | | DATE | | | A MEDICAL | | | | | | CENTER | | + + + + + + | LAST DOSE | CLINICAL LABORATORY AIDE | | MID-COLUMBI | | | TIME [...] | + + + + + | [facility] | And | [place] [address] | [phone] | | [facility] | [facility] | | | + + + + + documented in this encounter Visit Diagnoses Not on filedocumented in this encounter"
--- OUTSIDE RECORDS SUMMARY | ~2019-07-08 | XMS | Encounter Summary ---
Demographics + + + | Address | [address] | | | [place] [address] | + + + | Home Phone | | + + + | Preferred Language | Unknown | + + + | Marital Status | | + + + | Holiness Affiliation | 1027 | + + + | Race | Unknown | + + + | Ethnic Group | Unknown | + + + Author + + + | Author | [facility] | | | and [place]ana | + + + | Organization | [facility] | | | [...] Team Providers + +------+ + | Care Director Of Dementia Operations Name | Role | Phone | + +------+ + | Camilla Andino | PCP | Unavailable | + +------+ + Encounter Details +--------+ + + + + | Date | Type | Department | Care Team | Description | +--------+ + + + + | 04/07/ | Orders Only | [facility] | Provider, | | | 2018 | | SYSTEM GENERIC OP | MD [address] | | | | | [address] | [address] | | | | | [address] [place], [place] | [place] [address] | | | | | [address] | | | | | | [phone] | | | +--------+ + + + [...]
--- OUTSIDE RECORDS SUMMARY | ~2019-07-08 | XMS | Encounter Summary ---
Demographics + + + | Address | [address] | | | [place] [address] | + + + | Home Phone | | + + + | Preferred Language | Unknown | + + + | Marital Status | | + + + | Bahai Affiliation | 1027 | + + + | Race | Unknown | + + + | Ethnic Group | Unknown | + + + Author + + + | Author | [facility] | | | and Fengana | + + + | Organization | [facility] | | | and [...] Team Providers + +------+ + | Care Senior Advisor Name | Role | Phone | + [...] + + | 05/04/ | Refill | [facility] | Jacob Disla, | Medication Refill | | 2019 | | [facility] | DIST[facility]BUTION [address] | (albuterol 2.5 mg/3 | | | | CARE [address] | [place], [place] | mL nebulizer | | | | [place], [place] | [address] | solution) | | | | [address] | | | | | | [phone] | | | +--------+--------+ + + + [...]
--- OUTSIDE RECORDS SUMMARY | ~2019-07-08 | XMS | Clinical Summary ---
Demographics + + + | Address | [address] | | | [place] [address] | + + + | Home Phone | | + + + | Preferred Language | Unknown | + + + | Marital Status | | + + + | Latter-Day Affiliation | 1027 | + + + | Race | Unknown | + + + | Ethnic Group | Unknown | + + + Author + + + | Author | [facility] (Historical as of | | | 04-25-19) | + + + | Organization | [facility] (Historical as of | | | 04-25-19) [...] Team Providers + +------+ + | Care Electron Beam Welding Machine Operator Name | Role | Phone [...] today. He is planning to move to [facility] to be | | near his daughter. I do not personally know any store standards associate or pain | | health management consultant in that area, but would provide the [...] persistent | | 2019 | | | DISPENSING AND MEASURING OPTICIAN | asthma with acute | | | [...] + | Alcohol abuse | Mother | Yamnii | | + + +-------+ + | Cancer | Sister | | chrones disease | + + +-------+ + | Rush syndrome | Sister | | | + [...] ETHICON | | | PHSL6 | | [id number]: Qty: 1 on | | | | | | / | | 12/21/2014 by Chris Sams | | | | | | /[id number] | | MD Fredi | | | [...] +------+-------+ + | MEDICARE | MEDICA | [id number] | | | [address] | | | RE | | | | [place] [address] | | | [place] | | | | | | | AD | | | | | + +--------+ +------+-------+ + | MEDICARE | MEDICA | [id number] | | | [address] | | | RE | | | | [place], [place] [address] | | | [place] | | | [...] | juliane | | | 1044 | [address] | + +--------+ +--------+ + + | JESUS REGALADO | Person | Self | [birth year] | Home: | [address] | | | al/Fam | | 1964 | +- | [place] | | | [place] | | | [address][birth year] | [address] | + +--------+ +--------+ + +
--- OUTSIDE RECORDS SUMMARY | ~2019-07-08 | XMS | Encounter Summary ---
Demographics + + + | Address | [address] | | | [place] [address] | + + + | Home Phone | | + + + | Preferred Language | Unknown | + + + | Marital Status | | + + + | Nondenominational Affiliation | 1027 | + + + | Race | Unknown | + + + | Ethnic Group | Unknown | + + + Author + + + | Author | [facility] | | | and [place]ana | + + + | Organization | [facility] | | [...] Team Providers + +------+ + | Care Veneer Clipper Name | Role | Phone | + [...] | | | | hypoxia | [place] | CRISTINA GEE | | | | | ([facility]) | [address] | [address] | | | | | | Phone: | [place] | | | | | | [phone] | [address] Phone: | | | | | | Fax: | [phone] | | | | | | [phone] | Fax: | | | | | | | [phone] | + + + + + + [...] + + | 05/29/ | Hospital | [facility] | Jesus Cotter | Pneumonia of both | | 2019 - | Encounter | [facility] | MD [address] | lower lobes due to | | | | CARE [address]LO[address] | [address] [place], | infectious organism | | 05/31/ | | [address] | [place] [address] | ([facility]) (Primary Dx); | | 2019 | | [place], [place] | [phone] | Exacerbation of | | | | [address] | | asthma, unspecified | | | | [phone] | Jerry Dela Cruz DO | asthma severity, | | | | | [address] | unspecified whether | | | | | [address] | persistent; | | | | | [place] [address] | Respiratory | | | | | [phone] | distress; Acute | | | | | | respiratory failure | | | | | Norman Portillo MD | with hypoxia (HCC); | | | | | [address] | Anxiety; Asthma, | | | | | [place] [address] | unspecified asthma | | | | | [phone] | severity, | | | | | [...] Norman Portillo MD - 05/31/2019 1212 PDT [facility] Service: Hospitalist Discharge Summary Date of Admission: [...] started on IV steroids and nebulizer treatment fpxfeb-ndy-rpway. Within 48 hours his wh eezing had [...] hours. No results for input(s): PHART, PO2ART, IED8BHZ, R1RTFJXH, BEART in the last 168 hours. No results for input(s): APTT, INR, PTT in the last 168 hours. No results for input(s): TSH in the last 168 hours. Invalid input(s): T3FREE, FREET4 Recent Labs Lab 05/29/19 1245 TROPONINT <0.006 Radiology No results found. Disposition: home Condition: Fair Code Status: Full Code Discharge Procedure Orders Ambulatory Referral to [facility] Pulmonology Referral Priority: Routine Referral Type: Evaluate & Treat Referral Reason: Specialty Services Required Referred to Provider: RAUL FRAGOSO Requested Specialty: Pulmonary Disease Number of Visits Requested: 1 Follow up: Radha Rowland MD [address] [facility] [id number] In 1 week Raul Fragoso MD [address] DIAL [facility] [id number] In 1 month Discharge Medications New Medications [...] | | | | | ([facility]), Asthma, | | | | [...] Norman Portillo MD - 05/30/2019 1352 PDT [facility] Service: Hospitalist Progress Note Hospital Day: LOS: [...] hours. No results for input(s): PHART, PO2ART, PEK1FAS, I8PPWLCH, BEART in the last 168 hours. No [...] Iliana Lehman RN at 019 7:45 [facility] 1833 PDTRx Admission Medication History Note I have reviewed the medication history for appropriate doses obtained by: Pharmacy Medica tion History Power Brake Operator After reviewing the home medication list : I agree with the home medications list Please Review and Order Home Medications as necessary. Thanks Tatyana Chinchilla PharmD, [facility] >> Carla Swanson [facility] 05/29/2019 16:40 Rx Medication History Power Brake Operator Note Patients Preferred Pharmacy has been updated in EPIC: yes Patients Allergies have been updated and marked as reviewed: yes Ibuprofen The following changes were made to the allergy list (if any): N/A Medication History provided by: Patient and [employer] Info Follow-up Issues: None- Pending Pharmacist Review High Risk Medications (dual source verification needed): None Changes made to the medication list include: N/A Reliability of information obtained: RELIABLE Additional Comments: N/A Medication history has been completed: Awaiting Pharmacist Final Review Carla Swanson [facility] 05/29/2019 16:40 documented in this encounter Plan of Treatment + [...] +--------+ + + | Ambulatory Referral to [facility] | Routin | Acute respiratory | Ordered: [...] R?MRN: | | | | | | [id number] | | | [id number] | | | riteri | | | [...] | JEAN PIERRE | | | L ACCOUNT DEVELOPMENT SPECIALIST | | | | | | LORRAI | | | NE, | | | ACCOUNTS PAYABLE ANALYST | | | Nurse | | | [...] at | | | | | | [facility], [address] | | | | | | [place] | | | | | | [address] | | | | + + + + + + + + | Specimen | + + | Tissue | + + + + + + + | Performing | Address | City/State/Zipcode | Phone Number | | Organization | | | | + + + + + | [facility] | [address] | [place] [address] | [phone] | + + + + + Phosphorus (05/30/2019 5:54 PDT) + + + + + + | Component | Value | Ref Range | Performed | Pathologist | | | | | At | Signature | + + + + + + | Phosphorus | 4.5Comment: Testing | 2.3 - 4.8 mg/dL | [facility] | | | | performed at [facility], [address] | | LABORATORY | | | | [address], | | | | | | [place] [address] | | | | + + + + + + + + | Specimen | + + | Blood | + + + + + + + | Performing | Address | City/State/Zipcode | Phone Number | | Organization | | | | + + + + + | [facility] | [address] | [place] [address] | [phone] | + + + + + Magnesium (05/30/2019 5:54 PDT) + + + + + + | Component | Value | Ref Range | Performed | Pathologist | | | | | At | Signature | + + + + + + | Magnesium | 2.1Comment: Testing | 1.7 - 2.4 mg/dL | [facility] | | | | performed at [facility], [address] | | LABORATORY | | | | [address] [place], | | | | | | [place] [address] | | | | + + + + + + + + | Specimen | + + | Blood | + + + + + + + | Performing | Address | City/State/Zipcode | Phone Number | | Organization | | | | + + + + + | [facility] | [address] | [place] [address] | [phone] | + + + + + CBC [...] [facility] | | | | performed at [facility], [address] | | LABORATORY | | | | [address], | | | | | | [place] [address] | | | | + + + + + + + + | Specimen | + + | Blood | + + + + + + + | Performing | Address | City/State/Zipcode | Phone Number | | Organization | | | | + + + + + | [facility] | [address] | [place] [address] | [phone] | + + + + + Basic [...] | | | | | | [facility] traceable | | | | | | equation.Testing | | | | | | performed at [facility], [address] | | | | | | [facility], | | | | | | [place] [address] | | | | + + + + + + + + | Specimen | + + | Blood | + + + + + + + | Performing | Address | City/State/Zipcode | Phone Number | | Organization | | | | + + + + + | [facility] | [address] | [place] [address] | [phone] | + + + + + Culture, [...] | | LABORATORY | | | | Blvd;[place] [address] | | | | + + + + + + | RESULT | NO GROWTH 6 DAYS | | [facility] | | | | | | LABORATORY | | + + + + + + | RESULT | Testing performed at | | [facility] | | | | [facility], [address] [facility] | | LABORATORY | | | | [place], [place] | | | | | | [id number]: Testing | | | | | | performed at [facility], [address] | | | | | | [place], [place] | | | | | | [address] | | | | + + + + + + + + | Specimen | + + | Blood | + + + + + + + | Performing | Address | City/State/Zipcode | Phone Number | | Organization | | | | + + + + + | [facility] | [address] | [place] [address] | [phone] | + + + + + Culture, [...] | [facility] | | | Requests | [facility];[address] | | LABORATORY | | | | [address];[place] [address] | | | | + + + + + + | RESULT | NO GROWTH 6 DAYS | | [facility] | | | | | | LABORATORY | | + + + + + + | RESULT | Testing performed at | | [facility] | | | | [facility], [address] | | LABORATORY | | | | [place] | | | | | | [id number]: Testing | | | | | | performed at [facility], [address] | | | | | | [address], [place], [place] | | | | | | [address] | | | | + + + + + + + + | Specimen | + + | Blood | + + + + + + + | Performing | Address | City/State/Zipcode | Phone Number | | Organization | | | | + + + + + | [facility] | [address] | [place] [address] | [phone] | + + + + + XR [...] | | | | | | at [facility];[address] [place] [address] | | | | | | [facility];[place] [address] | | | | + + + + + + + + | Specimen | + + | Blood | + + + + + + + | Performing | Address | City/State/Zipcode | Phone Number | | Organization | | | | + + + + + | [facility] | [address] | [place] [address] | [phone] | + + + + + Comprehensive [...] | >60Comment: GFR <60: | >60 | [facility] | | | GFR | CHRONIC [...] | | | | | | [facility] traceable | | | | | | equation.Testing | | | | | | performed at [facility];[address] | | | | | | [facility];[place], [place] | | | | | | [address] | | | | + + + + + + + + | Specimen | + + | | + + + + + + + | Performing | Address | City/State/Zipcode | Phone Number | | Organization | | | | + + + + + | [facility] | [address] | [place] [address] | [phone] | + + + + + Troponin I (05/29/2019 12:45 PDT) + + + + + + | Component | Value | Ref Range | Performed | Pathologist | | | | | At | Signature | + + + + + + | Troponin I | <0.006Comment: 0.04 | 0.00 - 0.04 | [facility] | | | | ng/mL or | [...] at | | | | | | [facility];[address] [facility] | | | | | | [facility];[place] [address] | | | | + + + + + + + + | Specimen | + + | | + + + + + + + | Performing | Address | City/State/Zipcode | Phone Number | | Organization | | | | + + + + + | [facility] | [address] | [place] [address] | [phone] | + + + + + ECG [...] (301), | | | | | | graphic editor Haseeb Min | | | | [...] | | | Absolute | performed at [facility];[address] | [address] | LABORATORY | | | | [address];[place] | | | | | | [address] | | | | + + + + + + + + | Specimen | + + | Blood | + + + + + + + | Performing | Address | City/State/Zipcode | Phone Number | | Organization | | | | + + + + + | [facility] | [address] | [place] [address] | [phone] | + + + + + documented [...]
--- OUTSIDE RECORDS SUMMARY | ~2019-07-08 | XMS | Clinical Summary ---
Demographics + + + | Address | [address] | | | [place] [address] | + + + | Home Phone | | + + + | Preferred Language | Unknown | + + + | Marital Status | Single | + + + | Zoroastrian Affiliation | NON | + + + | Race | White | + + + | Ethnic Group | Not or | + + + Author + + + | Organization | Unknown | + + + | Address | Unknown | + + + | Phone | Unavailable | + + + Care Team Providers + +------+ + | Care Dredge Mate Name | Role | Phone | + +------+ + PCP | Unavailable | + +------+ + Source Comments MADDY is fully live on both [facility] and [facility] InPatient.[facility] Allergies Not on File Medications Not on file Active Problems Not on file Social History + +-------+ +--------+------+ | Tobacco [...] | + + Last Filed Vital Signs Not on file Plan of Treatment + + + + + | Health Maintenance | Due Date | Last Done | Comments | + + + + + | Influenza (Flu) | | | | | vaccination (#1) | 9 | | | + + + + + | Pneumococcal | Aged Out | | No longer eligible | | vaccination | | | based on patient's | | | | | age to complete this | | | | | topic | + + + + + Results Not on filefrom Last 3 Months"
--- OUTSIDE RECORDS SUMMARY | ~2019-07-08 | XMS | Clinical Summary ---
Demographics + + + | Address | [address] | | | [place] [address] | + + + | Home Phone | | + + + | Preferred Language | Unknown | + + + | Marital Status | Single | + + + | Scientologist Affiliation | NON | + + + | Race | White | + + + | Ethnic Group | Not or | + + + Author + + + | Organization | Unknown | + + + | Address | Unknown | + + + | Phone | Unavailable | + + + Care Team Providers + +------+ + | Care Laboratory Tester Name | Role | Phone | + +------+ + PCP | Unavailable | + +------+ + Source Comments MADDY is fully live on both [facility] Ambulatory and [facility] InPatient.[facility] Allergies Not on File Medications Not [...]
--- OUTSIDE RECORDS SUMMARY | ~2019-07-08 | XMS | Encounter Summary ---
Demographics + + + | Address | [address] | | | [place] [address] | + + + | Home Phone | | + + + | Preferred Language | Unknown | + + + | Marital Status | | + + + | Denominational Affiliation | 1027 | + + + | Race | Unknown | + + + | Ethnic Group | Unknown | + + + Author + + + | Author | [facility] | | | and [place] | + + + | Organization | [facility] | | | [...] Team Providers + +------+ + | Care Pad Hand Name | Role | Phone | + +------+ + | Camilla Andino | PCP | Unavailable | + +------+ + Encounter Details +--------+ + + + + | Date | Type | Department | Care Team | Description | +--------+ + + + + | 04/07/ | Orders Only | [facility] | Provider, | | | 2018 | | SYSTEM GENERIC OP | [address] | | | | | [address] | [address] | | | | | [address] [place], [place] | [place] [address] | | | | | [address] | | | | | | [phone] | | | +--------+ + + + [...]
--- OUTSIDE RECORDS SUMMARY | ~2019-07-08 | XMS | Encounter Summary ---
Demographics + + + | Address | [address] | | | [place] [address] | + + + | Home Phone | | + + + | Preferred Language | Unknown | + + + | Marital Status | | + + + | Jehovah'S Witness Affiliation | 1027 | + + + | Race | Unknown | + + + | Ethnic Group | Unknown | + + + Author + + + | Author | [facility] | | | and Fengana | + + + | Organization | [facility] | | | [...] Team Providers + +------+ + | Care Event Set Up Specialist Name | Role | Phone | + [...] Medication Refill | | 2018 | | [facility] | MD [address] | | | | | [facility] [address] | [address] | | | | | [place], [place] | [place] [address] | | | | | [address] | [phone] | | | | | [phone] | | | +--------+--------+ + + + [...]
--- OUTSIDE RECORDS SUMMARY | ~2019-07-08 | XMS | Clinical Summary ---
Demographics + + + | Address | [address] | | | [place] [address] | + + + | Home Phone | | + + + | Preferred Language | Unknown | + + + | Marital Status | | + + + | Scientologist Affiliation | 1027 | + + + | Race | Unknown | + + + | Ethnic Group | Unknown | + + + Author + + + | Author | [facility] | | | and Fengana | + + + | Organization | [facility] | | [...] Team Providers + +------+ + | Care Underbaster Name | Role | Phone | + [...] | | | | | | | ([facility]), Asthma, | | | | | | [...] 05/31/ | | | MD Norman | ([facility]) (Primary Dx); | | 2018 | | [...] | | | | | with hypoxia ([facility]); | | | | | | Anxiety; [...] Refill | | 2018 | | | WOOD CAULKER | (albuterol 2.5 mg/3 | | | [...] 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 | | | + [...] [facility] | | | PHSL6 | | [id number]: Qty: 1 on | | | ETHICON | | | / | | 12/21/2014 by Chris Sams | | | SUTURE - | | | /[id number] | | MD Fredi | | | [...] R?MRN: | | | | | | [id number] | | | [id number] | | | riteri | | | [...] | JEAN PIERRE | | | L HOOKER INSPECTOR | | | | | | LORRAI | | | NE, | | | WOOD CAULKER | | | Nurse | | | [...] at | | | | | | [facility], [address] | | | | | | [place] | | | | | | [address] | | | | + + + + + + + + | Specimen | + + | Tissue | + + + + + + + | Performing | Address | City/State/Zipcode | Phone Number | | Organization | | | | + + + + + | [facility] | [address] | [place] [address] | [phone] | + + + + + CBC [...] [facility] | | | | performed at [facility], [address] | | LABORATORY | | | | [place], | | | | | | [place] [address] | | | | + + + + + + + + | Specimen | + + | Blood | + + + + + + + | Performing | Address | City/State/Zipcode | Phone Number | | Organization | | | | + + + + + | [facility] | [address] | [place] [address] | [phone] | + + + + + Phosphorus [...] | | | | | [place] [address] | | | | + + + + + + + + | Specimen | + + | Blood | + + + + + + + | Performing | Address | City/State/Zipcode | Phone Number | | Organization | | | | + + + + + | [facility] | [address] | [place] [address] | [phone] | + + + + + Magnesium (05/30/2019 5:54 PDT) + + + + + + | Component | Value | Ref Range | Performed | Pathologist | | | | | At | Signature | + + + + + + | Magnesium | 2.1Comment: Testing | 1.7 - 2.4 mg/dL | [facility] | | | | performed at [facility], [address] | | LABORATORY | | | | [place], | | | | | | [place] [address] | | | | + + + + + + + + | Specimen | + + | Blood | + + + + + + + | Performing | Address | City/State/Zipcode | Phone Number | | Organization | | | | + + + + + | [facility] | [address] | [place] [address] | [phone] | + + + + + Basic [...] | | | | | performed at [facility], [address] | | | | | | [facility], | | | | | | [place] [address] | | | | + + + + + + + + | Specimen | + + | Blood | + + + + + + + | Performing | Address | City/State/Zipcode | Phone Number | | Organization | | | | + + + + + | [facility] | [address] | [place] [address] | [phone] | + + + + + Culture, [...] Special | Testing performed at | | [facility] | | | Requests | [facility];[address] | | LABORATORY | | | | [place] [address] | | | | + + + + + + | RESULT | NO GROWTH 6 DAYS | | [facility] | | | | | | LABORATORY | | + + + + + + | RESULT | Testing performed at | | [facility] | | | | [facility], [address] | | LABORATORY | | | | [place], [place] | | | | | | [id number]: Testing | | | | | | performed at [facility], [address] | | | [address] [place], [place] | | | | | | [address] | | | | + + + + + + + + | Specimen | + + | Blood | + + + + + + + | Performing | Address | City/State/Zipcode | Phone Number | | Organization | | | | + + + + + | [facility] | [address] | [place] [address] | [phone] | + + + + + XR [...] | | | | | | at [facility];[address] | | | | | | [place] [address] | | | | + + + + + + + + | Specimen | + + | Blood | + + + + + + + | Performing | Address | City/State/Zipcode | Phone Number | | Organization | | | | + + + + + | [facility] | [address] | [place] [address] | [phone] | + + + + + Troponin [...] at | | | | | | [facility];[address];[place] [address] | | | | + + + + + + + + | Specimen | + + | | + + + + + + + | Performing | Address | City/State/Zipcode | Phone Number | | Organization | | | | + + + + + | [facility] | [address] | [place] [address] | [phone] | + + + + + Comprehensive [...] 33 | 10 - 65 U/L | [facility] | | | | | | LABORATORY | | + + + + + + | Estimated | >60Comment: GFR <60: | >60 | [facility] | | | GFR | CHRONIC KIDNEY [...] | | | | | performed at [facility] | | | | | | [facility];[place], [place] | | | | | | [address] | | | | + + + + + + + + | Specimen | + + | | + + + + + + + | Performing | Address | City/State/Zipcode | Phone Number | | Organization | | | | + + + + + | [facility] | [address] | [place] [address] | [phone] | + + + + + ECG [...] | | | | | ONLY, -COMPUTER (690), | | | | | | desk [...] 0.06Comment: Testing | 0.00 - 0.10 | [facility] | | | Absolute | performed at [facility];[address] | LABORATORY | | | | [address] [facility];[place], [place] | | | | | | [address] | | | | + + + + + + + + | Specimen | + + | Blood | + + + + + + + | Performing | Address | City/State/Zipcode | Phone Number | | Organization | | | | + + + + + | [facility] | [address] | [place] [address] | [phone] | + + + + + from [...] +--------+ +---------+--------+ | MEDICARE | [facility] | [id number] | 12/09/19 | [phone] | | Medica | | | AD | | 14-Pre | 5 | | re | | | MEDICA | | sent | | | | | | RE | | | | | | + +--------+ +--------+ +---------+--------+ | MEDICARE | [facility] | [id number] | 12/09/19 | [phone] | | Medica [...] [place] | | | 4 (Home) | [address] | + +--------+ +--------+ + + | Jesus Walton | Person | Self | [birth year] | [address] | | [place] | leonidas/Ajith | | 1965 | | [place] | | | [place] | | | 4 (Home) | [address] | + +--------+ +--------+ + + Advance Directives Patient has advance care planning documents, and code status on file. For more information, please contact:[facility] [place] [address] + + + + + | Code Status | Date | Date | Comments | | | Activated | Inactivated | | + + + + + | Full Code | 05/29/2019 | 05/31/2019 | | | | 17:14 | 15:49 | | + + + + +
[~2019-07-08 07:09] MED LIST: ALBUTEROL2.5 MG/3 M; ALPRAZOLAM0.5 MG PO; ALPRAZOLAM2 MG PO; DAYPRO600 MG PO; DEXAMETHASONE4 MG; DEXAMETHASONE4 MG PO; GEODON20 MG; LITHIUM CARBON300 M1; NORCO 5-325 TA1 EACH PO; OXYCODONE PO; OXYCONTIN10 MG; PERCOCET 5-3251 EACH PO; PREDNISONE20 MG; PREDNISONE20 MG PO; PROVENTIL HFA6.7 GM INH; QVAR7.3 G1 INH; THEOPHYLLINE400 MG; XANAX0.5 MG PO
[2019-07-08] MEDS ORDERED: PREDNISONE20 MG PO (08:15)
[2019-07-08] MEDS ORDERED: VENTOLIN HFA18 GM INH (08:15)
== END 2019-07-08 08:21 | disposition home or self-care (01) ==
LOC: ED 07:09
DX: J45.901 Unspecified asthma with (acute) exacerbation (principal); F32.9 Major depressive disorder, single episode, unspecified; Z88.8 Allergy status to other drugs, medicaments and biological substances; Z79.899 Other long term (current) drug therapy
CPT/HCPCS: 94640; 99284-25; J7512